=== PATIENT | male | born 1965 | race Caucasian/White ===

== ENCOUNTER 2019-03-02 11:04 | Emergency (ER) | payer BC, SELFPAY ==
[2019-03-02 11:42] LABS: Absolute Monocytes 1.3 K/uL (0.1-1.3); Absolute Neutrophil 8.7 K/uL (1.8-8.0); Basophils % 0.6 % (0-1.3); Eosinophils % 3.1 % (0-4.4); Hematocrit 47.4 % (39.6-49.0); Lymphocytes % 22.5 % (15.3-44.8); MPV 8.9 fL (7.6-11.3); Monocytes % 9.4 % (3.3-12.3); RBC Red Blood Cell Count 5.46 M/uL (4.33-5.43)
[2019-03-02] MEDS ORDERED: NA CHLORIDE 0.9% 1,000 ML ONE (11:53)
[2019-03-02 11:59] LABS: ALT/SGPT 23 U/L (12-78); AST/SGOT 14 U/L (15-37); Albumin 3.5 g/dL (3.4-5.0); Alkaline Phosphatase 111 U/L (45-117); BUN Blood Urea Nitrogen 18 mg/dL (7-18); Bicarbonate 25 mmol/L (21-32); Bilirubin Direct < 0.1 mg/dL (0-0.2); Bilirubin Total 0.4 mg/dL (0.2-1.0); Glucose Level 189 mg/dL (74-106); Lipase 148 U/L (73-393); Potassium 4.6 mmol/L (3.5-5.1); Protein, Total 8.8 g/dL (6.4-8.2); Sodium Level 133 mmol/L (136-145)
[2019-03-02] MEDS ORDERED: ONDANSETRON 4 MG/2 ML VIAL ONE (12:40)
--- NOTE | 2019-03-02 12:44 | RAD REPORT ---
EXAM DESCRIPTION: CT - Abdomen Pelvis Wo Contrast - 03/02/2019 12:21 pm CLINICAL HISTORY: Abdominal pain COMPARISON: None TECHNIQUE: Computed axial tomography of the abdomen and pelvis was obtained. IV and oral contrast we re not requested. All CT scans are performed using dose optimization technique as appropriate and may include automated exposure control or mA/KV adjustment according to patient size. FINDINGS: The evaluation of solid organs, vessels and bowel is limited secondary to the lack of con trast administration. A renal calculus is not seen. Mild to moderate left hydronephrosis. 7 millimeter calculus proximal le ft ureter Hounsfield unit 438 Fatty liver The liver, spleen, pancreas, and adrenals appear grossly normal. The appendix is normal. There is no evidence of diverticulitis. IMPRESSION: A 7 millimeter calculus proximal left ureter resulting in mild to moderate left hydronep hrosis
[2019-03-02] MEDS ORDERED: MORPHINE 4 MG/ML SYR ONE (13:11)
[2019-03-02 13:51] LABS: Urine Blood TRACE (NEG); Urine Glucose TRACE (NEG); Urine Protein NEGATIVE (NEG)
[2019-03-02 13:59] LABS: Urine Bacteria <20 /HPF (NONE SEEN); Urine Culture Reflex Order NOT NEEDED; Urine RBC <5 /HPF (NONE SEEN)
[2019-03-02] MEDS ORDERED: CEFTRIAXONE/SWI 1gm 1 GM/10 ML SYR ONE (14:07)
[2019-03-02] MEDS ORDERED: TAMSULOSIN 0.4 MG SR CAP ONE (14:07)
--- NOTE | 2019-03-02 14:09 | ER ---
Nurse's Notes [facility] Name: Danny Moreland Jr Age: 53 yrs Sex: Male : 1965 Arrival Date: 03/02/2019 Time: 11:07 Bed 14 Private MD: Diagnosis: Calculus of kidney and ureter Presentation: 03/02 11:14 Presenting complaint: Patient states: Cassia had some small bowel obstructions before, sg well my BMs have been pretty irregular and have had some issues with constipation in the past, reports last BM was about 2 weeks ago, has had abd distention with pain in the LUQ for several days, has been taking OTC mag citrate but only had a watery BM that was small afterwards also reports nausea, denies vomiting. Transition of care: patient was not received from another setting of care. Onset of symptoms was February 11, 2019. Risk Assessment: Do you want to hurt yourself or someone else? Patient reports no desire to harm self or others. Initial Sepsis Screen: Does the patient meet any 2 criteria? RR > 20 per min. HR > 90 bpm. Yes Does the patient have a suspected source of infection? Yes: Acute abdominal pain If YES to both, name of provider notified: Ricardo Walters MD. Care prior to arrival: None. 11:14 Method Of Arrival: Ambulatory sg 11:14 Acuity: HUGO 2 sg Triage Assessment: 11:17 General: Appears uncomfortable, ill, well nourished, Behavior is cooperative. Pain: sg Complains of pain in left upper quadrant and abdominal area Quality of pain is described as aching. GI: Abdomen is round distended, Last BM was February 08, 2019. Reports nausea. Historical: - Allergies: 11:16 No Known Allergies; sg - PMHx: 11:16 Hypertension; Diabetes - NIDDM; sg - Immunization history:: Adult Immunizations up to date. - Social history:: Smoking status: Patient uses tobacco products. - Ebola Screening: : Patient negative for fever greater than or equal to 101.5 degrees Fahrenheit, and additional compatible Ebola Virus Disease symptoms Patient denies exposure to infectious person Patient denies travel to an Ebola-affected area in the 21 days before illness onset No symptoms or risks identified at this time. Screenin:10 Abuse screen: Denies threats or abuse. Nutritional screening: decreased appetite due to rb1 discomfort after eating.. Tuberculosis screening: No symptoms or risk factors identified. Fall Risk None identified. Assessment: 11:10 General: Appears uncomfortable, Behavior is calm, cooperative, Denies fever. Pain: rb1 Complains of pain in left lower quadrant Pain currently is 7 out of 10 on a pain scale. Neuro: Level of Consciousness is awake, alert, obeys commands, Oriented to person, place, time, situation. Cardiovascular: Capillary refill < 3 seconds is brisk in bilateral fingers. Respiratory: Airway is patent Respiratory effort is even, unlabored, Respiratory pattern is regular, symmetrical. GI: Abdomen is distended, Bowel sounds present X 4 quads. Abdomen is tender to palpation in left lower quadrant Abd is rigid. : No signs and/or symptoms were reported regarding the genitourinary system. Derm: Skin is dry, Skin is normal, Skin temperature is warm. 12:10 Reassessment: Patient appears in no apparent distress at this time. No changes from rb1 previously documented assessment. 13:10 Reassessment: Patient appears in no apparent distress at this time. Patient and/or rb1 family updated on plan of care and expected duration. Pain level reassessed. Patient is alert, oriented x 3, equal unlabored respirations, skin warm/dry/pink. Pt. ambulated to the restroom without difficulty. 14:00 Reassessment: Patient appears in no apparent distress at this time. No changes from rb1 previously documented assessment. Pt. was reeducated on his diagnosis but insists on leaving AMA. Vital Signs: 11:13 BP 147 / 107; Pulse 122 MON; Resp 21 S; Temp 97.2; Pulse Ox 98% on R/A; Pain 10/10; sg 12:00 BP 155 / 100; Pulse 104; Resp 20; Temp 98.1(O); Pulse Ox 97% on R/A; Pain 10/10; rb1 13:00 BP 147 / 109; Pulse 106; Resp 19; Temp 98.7(O); Pulse Ox 99% ; Pain 10/10; rb1 14:00 BP 148 / 101; Pulse 102; Resp 20; Temp 98.9(O); Pulse Ox 100% on R/A; Pain 8/10; rb1 ED Course: 11:07 Patient arrived in ED. mr 11:10 Patient has correct armband on for positive identification. Placed in gown. Bed in low rb1 position. Call light in reach. Side rails up X 1. Pulse ox on. NIBP on. 11:13 Arm band placed on. sg 11:15 Mahi Langford, NOMI is Primary Nurse. rb1 11:16 Triage completed. sg 11:17 Kali Chiu PA is PHCP. jmm 11:17 Ricardo Walters MD is Attending Physician. jmm 11:30 Inserted saline lock: 22 gauge in right antecubital area, using aseptic technique. rb1 Blood collected. 11:39 Radiology exam delayed due to lab results not completed at this time. (BUN/Creatinine). vm2 12:21 Abdomen In Process Unspecified. EDMS 12:21 CT completed. Patient tolerated procedure well. Patient moved back from CT. mw3 13:58 Abdomen 1 View (KUB) XRAY In Process Unspecified. EDMS 14:07 Aurea Murray MD is Referral Physician. jmm 14:20 No provider procedures requiring assistance completed. IV discontinued, intact, rb1 bleeding controlled, No redness/swelling at site. Pressure dressing applied. Administered Medications: 11:43 Drug: NS 0.9% 1000 ml Route: IV; Rate: 1 bolus; Site: right antecubital; rb1 12:29 Drug: Zofran 4 mg Route: IVP; Site: right antecubital; la1 12:44 Follow up: Response: No adverse reaction; Nausea is decreased rb1 13:05 Drug: morphine 4 mg Route: IVP; Site: right antecubital; rb1 13:20 Follow up: Response: No adverse reaction; Pain is decreased rb1 14:00 Drug: Rocephin - (cefTRIAXone) 1 grams Route: IVPB; Infused Over: 30 mins; Site: right rb1 antecubital; 14:20 Follow up: Response: No adverse reaction; IV Status: Completed infusion rb1 14:00 Drug: Flomax 0.4 mg Route: PO; rb1 14:18 Follow up: Response: No adverse reaction rb1 Outcome: 14:20 Patient left the ED. rb1 14:20 AMA AMA form signed rb1 14:20 Condition: stable 14:20 Instructed on medication usage, Demonstrated understanding of instructions, follow-up care, medications, Prescriptions given X 4. Signatures: Dispatcher [employer] EDMS Pb Teixeira, RN RN sg Kali Chiu PA PA jmm Rivera, Ana Maria mr Joycelyna, Jaret, RN RN la1 Mahi Langford RN RN rb1 [facility] Rose Marie Machado 3
--- NOTE | 2019-03-02 14:09 | EDPHYS ---
Physician Documentation [facility] Name: Danny Moreland Jr Age: 53 yrs Sex: Male : 1965 Arrival Date: 03/02/2019 Time: 11:07 Bed 14 Private MD: ED Physician Ricardo Walters HPI: 03/02 11:34 This 53 yrs old Male presents to ER via Ambulatory with complaints of jmm Constipation. 11:34 The patient presents with abdominal pain. jmm 11:34 Onset: The symptoms/episode began/occurred gradually, 1 week(s) ago. jmm 11:34 The symptoms do not radiate. Associated signs and symptoms: Pertinent positives:. jmm 11:34 The symptoms are described as achy. jmm 11:34 Modifying factors: The symptoms are alleviated by nothing, the symptoms are aggravated jmm by. This is a 53 year old male with a history of htn, DM that presents to the ED with complaints of left sided abdominal pain beginning 1 week ago. Patient states taking magnesium citrate with a watery bowel movement with no relief. Denies fever, denies vomiting. . Historical: - Allergies: 11:16 No Known Allergies; sg - PMHx: 11:16 Hypertension; Diabetes - NIDDM; sg - Immunization history:: Adult Immunizations up to date. - Social history:: Smoking status: Patient uses tobacco products. - Ebola Screening: : Patient negative for fever greater than or equal to 101.5 degrees Fahrenheit, and additional compatible Ebola Virus Disease symptoms Patient denies exposure to infectious person Patient denies travel to an Ebola-affected area in the 21 days before illness onset No symptoms or risks identified at this time. ROS: 11:34 Constitutional: Negative for fever, chills, and weight loss, Cardiovascular: Negative jmm for chest pain, palpitations, and edema, Respiratory: Negative for shortness of breath, cough, wheezing, and pleuritic chest pain. 11:34 Back: Negative for injury and pain, Skin: Negative for injury, rash, and discoloration, Neuro: Negative for headache, weakness, numbness, tingling, and seizure. 11:34 Abdomen/GI: Positive for abdominal pain. 11:34 All other systems are negative. Exam: 11:34 Head/Face: atraumatic. Eyes: EOMI, no conjunctival erythema appreciated ENT: Moist jmm Mucus Membranes Neck: Trachea midline, Supple Chest/axilla: Normal chest wall appearance and motion. Cardiovascular: Regular rate and rhythm. No edema appreciated Respiratory: Normal respirations, no respiratory distress appreciated 11:34 Constitutional: The patient appears alert, awake, uncomfortable. 11:34 Abdomen/GI: Inspection: obese Bowel sounds: normal, Palpation: soft, moderate abdominal tenderness, in the left upper quadrant and left lower quadrant. 11:34 Back: CVA tenderness, that is mild, is noted on the left. 11:34 Musculoskeletal/extremity: ROM: intact in all extremities. 11:34 Skin: Appearance: Color: normal in color. 11:34 Neuro: Orientation: is normal, Mentation: is normal, Memory: is normal. 11:34 Psych: Behavior/mood is pleasant, cooperative. Vital Signs: 11:13 BP 147 / 107; Pulse 122 MON; Resp 21 S; Temp 97.2; Pulse Ox 98% on R/A; Pain 10/10; sg 12:00 BP 155 / 100; Pulse 104; Resp 20; Temp 98.1(O); Pulse Ox 97% on R/A; Pain 10/10; rb1 13:00 BP 147 / 109; Pulse 106; Resp 19; Temp 98.7(O); Pulse Ox 99% ; Pain 10/10; rb1 14:00 BP 148 / 101; Pulse 102; Resp 20; Temp 98.9(O); Pulse Ox 100% on R/A; Pain 8/10; rb1 MDM: 11:20 Patient medically screened. [facility] 14:00 Data reviewed: vital signs, nurses notes. Counseling: I had a detailed discussion with cassandra the patient and/or guardian regarding: the historical points, exam findings, and any diagnostic results supporting the discharge/admit diagnosis, lab results, radiology results, the need for further work-up and treatment in the hospital. 14:00 ED course: I discussed with the patient the need for admission due to concerns for cassandra kidney injury and infection. Patient was made aware that if symptoms worsen this could lead to ESRD or even . Patient understood this and will return to the ED if symptoms worsen. . 03/02 11:21 Order name: Basic Metabolic Panel [facility] 03/02 11:21 Order name: CBC with Diff; Complete Time: 12:08 [facility] 03/02 11:21 Order name: Creatinine for Radiology; Complete Time: 12:08 [facility] 03/02 11:21 Order name: Hepatic Function; Complete Time: 12:08 [facility] 03/02 11:21 Order name: Lipase; Complete Time: 12:08 [facility] 03/02 11:21 Order name: Basic Metabolic Panel; Complete Time: 12:08 [facility] 03/02 12:17 Order name: Abdomen ; Complete Time: 12:50 [facility] 03/02 12:52 Order name: Urine Microscopic Only; Complete Time: 14:16 [facility] 03/02 13:25 Order name: Urine Dipstick--Ancillary (enter results); Complete Time: 14:16 ms 03/02 13:34 Order name: Abdomen 1 View (KUB) XRAY; Complete Time: 14:16 [facility] 03/02 11:21 Order name: IV Saline Lock; Complete Time: 13:24 [facility] 03/02 11:21 Order name: Labs collected and sent; Complete Time: 13:24 [facility] 03/02 12:52 Order name: Urine Dipstick-Ancillary (obtain specimen); Complete Time: 13:24 jm Administered Medications: 11:43 Drug: NS 0.9% 1000 ml Route: IV; Rate: 1 bolus; Site: right antecubital; rb1 12:29 Drug: Zofran 4 mg Route: IVP; Site: right antecubital; la1 12:44 Follow up: Response: No adverse reaction; Nausea is decreased rb1 13:05 Drug: morphine 4 mg Route: IVP; Site: right antecubital; rb1 13:20 Follow up: Response: No adverse reaction; Pain is decreased rb1 14:00 Drug: Rocephin - (cefTRIAXone) 1 grams Route: IVPB; Infused Over: 30 mins; Site: right rb1 antecubital; 14:20 Follow up: Response: No adverse reaction; IV Status: Completed infusion rb1 14:00 Drug: Flomax 0.4 mg Route: PO; rb1 14:18 Follow up: Response: No adverse reaction rb1 Disposition: 22:10 Co-signature as Attending Physician, Ricardo Walters MD Available for consultation at ps1 all times . Disposition: 03/02/19 14:08 Patient has left against medical advice. Impression: Calculus of kidney and ureter. - Patients states they are going to Home. - Condition is Stable. - Prescriptions for Ultracet 37.5- 325 mg Oral Tablet - take 1 tablet by ORAL route every 6 hours - for up to 5 days; do not exceed 8 tablets per day.; 12 tablet. Flomax 0.4 mg Oral Capsule, Sust. Release 24 hr - take 1 capsule by ORAL route once daily 1/2 hour following the same meal each day; 10 capsule. Cipro 500 mg Oral Tablet - take 1 tablet by ORAL route every 12 hours for 7 days; 14 tablet. Zofran 4 mg Oral Tablet - take 1 tablet by ORAL route every 12 hours As needed; 20 tablet. Follow up: Aurea Murray MD; When: 1 - 2 days; Reason: Recheck today's complaints, Continuance of care, Re-evaluation by your physician. - Problem is new. - Symptoms are unchanged. Signatures: Dispatcher [employer] EDFL Pb Teixeira, RN RN sg Kali Chiu PA PA [facility] Jaret Rahman RN RN la1 Mahi Langford RN RN rb1 Ricardo Walters MD MD ps1 Corrections: (The following items were deleted from the chart) 12:17 11:22 Abdomen Pelvis W Con+CT.RAD.BRZ ordered. [facility] 12:31 12:07 Fluid Challenge ordered. [facility] [place] 14:20 14:08 03/02/2019 14:08 Patients has left against medical advice. Impression: Calculus rb1 of kidney and ureter. Patient states they are going to Home. Condition is Stable. Follow up: Aurea Murray; When: 1 - 2 days; Reason: Recheck today's complaints, Continuance of care, Re-evaluation by your physician. Problem is new. Symptoms are unchanged. [facility]
--- NOTE | 2019-03-02 14:15 | RAD REPORT ---
EXAM DESCRIPTION: RAD - Abdomen 1 View (KUB) - 03/02/2019 1:58 pm CLINICAL HISTORY: Abdomen pain. FINDINGS: The bowel gas pattern is unremarkable. The patient's known left ureteral calculus is not clearly seen on this examination
[2019-03-02 14:28] VITALS: BP 147/109; TEMP 98.7; O2SAT 99
== END 2019-03-02 14:20 | disposition left against medical advice (07) ==
LOC: ER 11:04
DX: N20.2 Calculus of kidney with calculus of ureter (principal); I10 Essential (primary) hypertension; E11.9 Type 2 diabetes mellitus without complications; Z72.0 Tobacco use; Z53.29 Procedure and treatment not carried out because of patient's decision for other reasons
CPT/HCPCS: 36415; 74018; 74176; 80048; 80076; 81003; 81015; 83690; 85025; 96365; 96375; 99284; J0696; J2405; J7030

== ENCOUNTER 2019-03-04 07:45 | Inpatient (IN) | payer SELFPAY ==
[2019-03-04 08:24] LABS: Protime INR 1.1
[2019-03-04 08:26] LABS: Absolute Lymphocytes (CBC) 2.9 K/uL (0.7-4.9); Absolute Monocytes 1.3 K/uL (0.1-1.3); Absolute Neutrophil 9.4 K/uL (1.8-8.0); Basophils % 0.7 % (0-1.3); Eosinophils % 3.5 % (0-4.4); Hematocrit 44.7 % (39.6-49.0); Lymphocytes % 20.7 % (15.3-44.8); MPV 8.4 fL (7.6-11.3); Monocytes % 9.1 % (3.3-12.3); RBC Red Blood Cell Count 5.15 M/uL (4.33-5.43)
[2019-03-04] MEDS ORDERED: NA CHLORIDE 0.9% 1,000 ML ONE (08:28)
[2019-03-04] MEDS ORDERED: BISACODYL 10 MG RECTAL SUPP ONE (08:28)
[2019-03-04] MEDS ORDERED: LACTULOSE 20 GM/30 ML UCUP ONE (08:29)
[2019-03-04 08:39] LABS: ALT/SGPT 24 U/L (12-78); AST/SGOT 9 U/L (15-37); Albumin 3.2 g/dL (3.4-5.0); Alkaline Phosphatase 105 U/L (45-117); BUN Blood Urea Nitrogen 18 mg/dL (7-18); Bicarbonate 26 mmol/L (21-32); Bilirubin Direct 0.1 mg/dL (0-0.2); Bilirubin Total 0.2 mg/dL (0.2-1.0); Glucose Level 193 mg/dL (74-106); Lipase 462 U/L (73-393); Magnesium 2.3 mg/dL (1.8-2.4); NT PRO-BNP 822 pg/mL (<125); Potassium 4.4 mmol/L (3.5-5.1); Protein, Total 8.4 g/dL (6.4-8.2); Sodium Level 132 mmol/L (136-145); Troponin (Emerg Dept Use Only) < 0.02 ng/mL (0.0-0.045)
--- NOTE | 2019-03-04 09:03 | RAD REPORT ---
EXAM DESCRIPTION: RAD - Chest Single View - 03/04/2019 8:52 am CLINICAL HISTORY: ABDOMINAL DISTENTION Chest pain. COMPARISON: Abdomen 1 View (KUB) dated 03/02/2019; CHEST SINGLE VIEW dated 03/30/2015; CHEST SINGLE VIEW dated 02/24/2014 FINDINGS: Portable technique limits examination quality. The lungs are grossly clear. The heart is normal in size. No displaced fractures. IMPRESSION: No acute intrathoracic process suspected.
[2019-03-04] MEDS ORDERED: METRONIDAZOLE 500mg IVPB 500 MG/100 ML BAG IV ONE (09:16)
[2019-03-04] MEDS ORDERED: CEFTRIAXONE/SWI 1gm 1 GM/10 ML SYR ONE (09:16)
--- NOTE | 2019-03-04 10:13 | RAD REPORT ---
EXAM DESCRIPTION: CTAbdomen Pelvis W Contrast - 03/04/2019 9:57 am CLINICAL HISTORY: Abdominal pain. Abdominal distention;Constipation COMPARISON: Abdomen Pelvis Wo Contrast dated 03/02/2019 TECHNIQUE: Biphasic CT imaging of the abdomen and pelvis was performed with 100 ml non-ionic IV cont rast. All CT scans are performed using dose optimization technique as appropriate and may include automated exposure control or mA/KV adjustment according to patient size. FINDINGS: The lung bases are clear. Generalized fatty liver. The spleen, pancreas, adrenal glands and right kidney are normal. 7 mm stone is noted at the left UVJ resulting in moderate left hydroureter and hydronephrosis. This appears to be the same stone which was previously noted to be in the proximal left ureter. No bowel obstruction, free air, free fluid or abscess. The appendix is normal in size but contains a n appendicolith. No evidence of significant lymphadenopathy. No suspicious bony findings. IMPRESSION: 7 mm stone left UVJ resulting in moderate left hydronephrosis and hydroureter. Fatty liver.
--- NOTE | 2019-03-04 10:40 | EDPHYS ---
Physician Documentation [facility] Name: Danny Moreland Jr Age: 53 yrs Sex: Male : 1965 Arrival Date: 03/04/2019 Time: 07:47 Bed 19 Private MD: None, None ED Physician Tim Mcnamara HPI: 03/04 08:28 This 53 yrs old Male presents to ER via Ambulatory with complaints of madison Constipation, Abdominal Pain. 08:28 The patient presents with abdominal pain in the upper abdomen, in the lower abdomen, madison abdominal distention in the upper abdomen, in the lower abdomen. Onset: The symptoms/episode began/occurred 5 day(s) ago. The symptoms do not radiate. Associated signs and symptoms: none. Modifying factors: The symptoms are alleviated by nothing, the symptoms are aggravated by nothing. Severity of pain: At its worst the pain was mild moderate in the emergency department the pain is unchanged. The patient has not experienced similar symptoms in the past. Historical: - Allergies: 07:57 No Known Drug Allergies; - Home Meds: 07:57 Metformin Oral [Active]; Gemfibrozil Oral [Active]; losartan oral oral [Active]; hj - PMHx: 07:57 Diabetes - NIDDM; Hypertension; - PSHx: 07:57 None; - Immunization history:: Adult Immunizations up to date. - Social history:: Smoking status: Patient uses tobacco products, Patient uses alcohol. - Ebola Screening: : Patient negative for fever greater than or equal to 101.5 degrees Fahrenheit, and additional compatible Ebola Virus Disease symptoms Patient denies exposure to infectious person Patient denies travel to an Ebola-affected area in the 21 days before illness onset. - Family history:: not pertinent. ROS: 08:28 Constitutional: Negative for fever, chills, and weight loss, Eyes: Negative for injury, madison pain, redness, and discharge, ENT: Negative for injury, pain, and discharge, Neck: Negative for injury, pain, and swelling, Cardiovascular: Negative for chest pain, palpitations, and edema, Respiratory: Negative for shortness of breath, cough, wheezing, and pleuritic chest pain, Back: Negative for injury and pain, : Negative for injury, bleeding, discharge, and swelling, MS/Extremity: Negative for injury and deformity, Skin: Negative for injury, rash, and discoloration, Neuro: Negative for headache, weakness, numbness, tingling, and seizure, Psych: Negative for depression, anxiety, suicide ideation, homicidal ideation, and hallucinations, Allergy/Immunology: Negative for hives, rash, and allergies, Endocrine: Negative for neck swelling, polydipsia, polyuria, polyphagia, and marked weight changes, Hematologic/Lymphatic: Negative for swollen nodes, abnormal bleeding, and unusual bruising. 08:28 Abdomen/GI: Positive for abdominal pain, constipation, of the right upper quadrant, left upper quadrant, right lower quadrant and left lower quadrant. Exam: 08:28 Constitutional: This is a well developed, well nourished patient who is awake, alert, madison and in no acute distress. Head/Face: Normocephalic, atraumatic. Eyes: Pupils equal round and reactive to light, extra-ocular motions intact. Lids and lashes normal. Conjunctiva and sclera are non-icteric and not injected. Cornea within normal limits. Periorbital areas with no swelling, redness, or edema. ENT: Nares patent. No nasal discharge, no septal abnormalities noted. Tympanic membranes are normal and external auditory canals are clear. Oropharynx with no redness, swelling, or masses, exudates, or evidence of obstruction, uvula midline. Mucous membranes moist. Neck: Trachea midline, no thyromegaly or masses palpated, and no cervical lymphadenopathy. Supple, full range of motion without nuchal rigidity, or vertebral point tenderness. No Meningismus. Chest/axilla: Normal chest wall appearance and motion. Nontender with no deformity. No lesions are appreciated. Cardiovascular: Regular rate and rhythm with a normal S1 and S2. No gallops, murmurs, or rubs. Normal PMI, no JVD. No pulse deficits. Respiratory: Lungs have equal breath sounds bilaterally, clear to auscultation and percussion. No rales, rhonchi or wheezes noted. No increased work of breathing, no retractions or nasal flaring. Back: No spinal tenderness. No costovertebral tenderness. Full range of motion. Male : Normal genitalia with no discharge or lesions. Skin: Warm, dry with normal turgor. Normal color with no rashes, no lesions, and no evidence of cellulitis. MS/ Extremity: Pulses equal, no cyanosis. Neurovascular intact. Full, normal range of motion. Neuro: Awake and alert, GCS 15, oriented to person, place, time, and situation. Cranial nerves II-XII grossly intact. Motor strength 5/5 in all extremities. Sensory grossly intact. Cerebellar exam normal. Normal gait. Psych: Awake, alert, with orientation to person, place and time. Behavior, mood, and affect are within normal limits. 08:28 Abdomen/GI: Inspection: abdomen appears normal, distension, that is moderate, Bowel sounds: normal, Palpation: moderate abdominal tenderness, Liver: no appreciated palpable abnormalities, Hernia: not appreciated. Vital Signs: 07:59 BP 162 / 106; Pulse 119; Resp 18; Temp 98.3(TE); Pulse Ox 96% on R/A; Weight 81.65 kg; Height 5 ft. 6 in. (167.64 cm); Pain 10/10; 08:51 BP 147 / 85; Pulse 112; Resp 18; Pulse Ox 96% on R/A; 09:30 BP 155 / 87; Pulse 112; Resp 18; Pulse Ox 96% on R/A; hj 10:30 BP 156 / 87; Pulse 112; Resp 18; Pulse Ox 96% on R/A; 11:30 BP 156 / 88; Pulse 109; Resp 18; Pulse Ox 97% on R/A; 12:12 BP 156 / 85; Pulse 109; Resp 18; Pulse Ox 97% ; 13:45 BP 158 / 90; Pulse 109; Resp 18; Pulse Ox 97% on R/A; 07:59 Body Mass Index 29.05 (81.65 kg, 167.64 cm) MDM: 07:49 Patient medically screened. [facility] 08:28 Data reviewed: vital signs, nurses notes, lab test result(s), EKG, radiologic studies, [facility] CT scan, plain films. 03/04 08:08 Order name: Basic Metabolic Panel; Complete Time: 08:55 [facility] 03/04 08:08 Order name: CBC with Diff; Complete Time: 08:55 [facility] 03/04 08:08 Order name: LFT's; Complete Time: 08:55 [facility] 03/04 08:08 Order name: Magnesium; Complete Time: 08:55 [facility] 03/04 08:08 Order name: NT PRO-BNP; Complete Time: 08:55 [facility] 03/04 08:08 Order name: PT-INR; Complete Time: 08:55 [facility] 03/04 08:08 Order name: Troponin (emerg Dept Use Only); Complete Time: 08:55 [facility] 03/04 08:08 Order name: XRAY Chest (1 view); Complete Time: 10:37 [facility] 03/04 08:08 Order name: CT Abd/Pelvis - W/Contrast; Complete Time: 10:37 [facility] 03/04 08:08 Order name: Lipase; Complete Time: 08:55 [facility] 03/04 08:56 Order name: Urine Culture [facility] 03/04 09:01 Order name: Urine Dipstick--Ancillary (enter results) 03/04 08:08 Order name: EKG; Complete Time: 08:09 [facility] 03/04 08:08 Order name: Cardiac monitoring; Complete Time: 08:10 [facility] 03/04 08:08 Order name: EKG - Nurse/Tech; Complete Time: 08:10 [facility] 03/04 08:08 Order name: IV Saline Lock; Complete Time: 08:10 [facility] 03/04 08:08 Order name: Labs collected and sent; Complete Time: 08:10 [facility] 03/04 08:08 Order name: O2 Per Protocol; Complete Time: 08:10 [facility] 03/04 08:08 Order name: O2 Sat Monitoring; Complete Time: 08:10 [facility] 03/04 08:08 Order name: Urine Dipstick-Ancillary (obtain specimen); Complete Time: 09:08 [facility] 03/04 10:38 Order name: NPO; Complete Time: 10:39 [facility] Administered Medications: 08:19 Drug: NS 0.9% 1000 ml Route: IV; Rate: 1 bolus; Site: right antecubital; hj 09:30 Follow up: IV Status: Completed infusion; IV Intake: 1000ml hj 08:20 Drug: Lactulose 30 grams Volume: 45 ml; Route: PO; hj 09:09 Follow up: Response: No adverse reaction hj 08:20 Drug: Dulcolax Suppository 10 mg Route: MO; hj 09:09 Follow up: Response: No adverse reaction hj 09:00 Drug: Rocephin - (cefTRIAXone) 1 grams Route: IVPB; Infused Over: 30 mins; Site: right hj antecubital; 09:00 Drug: Flagyl 500 mg Volume: 100 ml; Route: IVPB; Rate: 200 ml/hr; Infused Over: 30 hj mins; Site: right antecubital; 10:40 Drug: fentaNYL (PF) 50 mcg Route: IVP; Site: right antecubital; hj 11:00 Follow up: Response: No adverse reaction; Pain is decreased hj 10:40 Drug: Zofran 4 mg Route: IVP; Site: right antecubital; hj 14:08 Follow up: Response: No adverse reaction; Nausea is decreased Disposition: 03/04/19 10:40 Hospitalization ordered by Peggy Hilliard for Inpatient Admission. Preliminary diagnosis are Abdominal tenderness, Hydronephrosis with renal and ureteral calculous obstruction - 7 mm left uvj, Unspecified kidney failure. - Bed requested for Telemetry/MedSurg (Inpatient). - Status is Inpatient Admission. hj - Condition is Fair. - Problem is new. - Symptoms have improved. UTI on Admission? No Signatures: Dispatcher [employer] EDKarina Mccain RN RN kl Anderson, Corey, MD MD cha Joaquin, Henry, RN RN Corrections: (The following items were deleted from the chart) 13:00 10:40 Hospitalization Ordered by Peggy Hilliard MD for Inpatient Admission. Preliminary diagnosis is Abdominal tenderness; Hydronephrosis with renal and ureteral calculous obstruction - 7 mm left uvj; Unspecified kidney failure. Bed requested for Telemetry/MedSurg (Inpatient). Status is Inpatient Admission. Condition is Fair. Problem is new. Symptoms have improved. UTI on Admission? No. [place] 14:07 13:00 03/04/2019 10:40 Hospitalization Ordered by Peggy Hilliard MD for Inpatient hj Admission. Preliminary diagnosis is Abdominal tenderness; Hydronephrosis with renal and ureteral calculous obstruction - 7 mm left uvj; Unspecified kidney failure. Bed requested for Telemetry/MedSurg (Inpatient). Status is Inpatient Admission. Condition is Fair. Problem is new. Symptoms have improved. UTI on Admission? No. kl
--- NOTE | 2019-03-04 10:40 | ER ---
Nurse's Notes [facility] Name: Danny Moreland Jr Age: 53 yrs Sex: Male : 1965 Arrival Date: 03/04/2019 Time: 07:47 Bed 19 Private MD: None, None Diagnosis: Abdominal tenderness;Hydronephrosis with renal and ureteral calculous obstruction-7 mm left uvj;Unspecified kidney failure Presentation: 03/04 07:54 Presenting complaint: Patient states: i was here recently for kidney stone and hj infection; i went home AMA coz i dont want to stay in the hospital; denies fever and chills, reports pain is getting worse;. Transition of care: patient was not received from another setting of care. Onset of symptoms was March 04, 2019. Risk Assessment: Do you want to hurt yourself or someone else? Patient reports no desire to harm self or others. Initial Sepsis Screen: Does the patient meet any 2 criteria? Yes Does the patient have a suspected source of infection? Yes:. Care prior to arrival: None. 07:54 Method Of Arrival: Ambulatory 07:54 Acuity: HUGO 3 hj Triage Assessment: 07:58 General: Appears in no apparent distress. uncomfortable, Behavior is calm, cooperative, hj appropriate for age. Pain: Complains of pain in back and abdomen. GI: Reports lower abdominal pain, upper abdominal pain. Historical: - Allergies: 07:57 No Known Drug Allergies; hj - Home Meds: 07:57 Metformin Oral [Active]; Gemfibrozil Oral [Active]; losartan oral oral [Active]; - PMHx: 07:57 Diabetes - NIDDM; Hypertension; - PSHx: 07:57 None; hj - Immunization history:: Adult Immunizations up to date. - Social history:: Smoking status: Patient uses tobacco products, Patient uses alcohol. - Ebola Screening: : Patient negative for fever greater than or equal to 101.5 degrees Fahrenheit, and additional compatible Ebola Virus Disease symptoms Patient denies exposure to infectious person Patient denies travel to an Ebola-affected area in the 21 days before illness onset. - Family history:: not pertinent. Screenin:58 Abuse screen: Denies threats or abuse. Denies injuries from another. Nutritional hj screening: No deficits noted. Tuberculosis screening: No symptoms or risk factors identified. Fall Risk None identified. Assessment: 07:58 GI: Bowel sounds present X 4 quads. Abd is soft. hj 07:58 General: Appears in no apparent distress. uncomfortable, Behavior is calm, cooperative, hj appropriate for age. Pain: Complains of pain in abdomen. Neuro: Level of Consciousness is awake, alert, obeys commands, Oriented to person, place, time, situation, Appropriate for age. Cardiovascular: Capillary refill < 3 seconds Patient's skin is warm and dry. Respiratory: Airway is patent Respiratory effort is even, unlabored, Respiratory pattern is regular, symmetrical. : No signs and/or symptoms were reported regarding the genitourinary system. EENT: No signs and/or symptoms were reported regarding the EENT system. Derm: No signs and/or symptoms reported regarding the dermatologic system. Musculoskeletal: No signs and/or symptoms reported regarding the musculoskeletal system. 08:30 Reassessment: Patient and/or family updated on plan of care and expected duration. Pain hj level reassessed. Patient is alert, oriented x 3, equal unlabored respirations, skin warm/dry/pink. awaiting results and POC;. 09:48 Reassessment: Patient and/or family updated on plan of care and expected duration. Pain hj level reassessed. Patient is alert, oriented x 3, equal unlabored respirations, skin warm/dry/pink. wheeled to CT;. 10:30 Reassessment: Patient and/or family updated on plan of care and expected duration. Pain hj level reassessed. Patient is alert, oriented x 3, equal unlabored respirations, skin warm/dry/pink. for admit; awaiting results;. 11:30 Reassessment: Patient and/or family updated on plan of care and expected duration. Pain hj level reassessed. Patient is alert, oriented x 3, equal unlabored respirations, skin warm/dry/pink. awaiting room placement;. 12:14 Reassessment: Patient and/or family updated on plan of care and expected duration. Pain hj level reassessed. Patient is alert, oriented x 3, equal unlabored respirations, skin warm/dry/pink. assisted to the bathroom;. 13:30 Reassessment: Patient and/or family updated on plan of care and expected duration. Pain hj level reassessed. Patient is alert, oriented x 3, equal unlabored respirations, skin warm/dry/pink. awaiting room placement;. 14:05 Reassessment: Patient and/or family updated on plan of care and expected duration. Pain hj level reassessed. Patient is alert, oriented x 3, equal unlabored respirations, skin warm/dry/pink. Vital Signs: 07:59 BP 162 / 106; Pulse 119; Resp 18; Temp 98.3(TE); Pulse Ox 96% on R/A; Weight 81.65 kg; hj Height 5 ft. 6 in. (167.64 cm); Pain 10/10; 08:51 BP 147 / 85; Pulse 112; Resp 18; Pulse Ox 96% on R/A; hj 09:30 BP 155 / 87; Pulse 112; Resp 18; Pulse Ox 96% on R/A; hj 10:30 BP 156 / 87; Pulse 112; Resp 18; Pulse Ox 96% on R/A; hj 11:30 BP 156 / 88; Pulse 109; Resp 18; Pulse Ox 97% on R/A; hj 12:12 BP 156 / 85; Pulse 109; Resp 18; Pulse Ox 97% ; hj 13:45 BP 158 / 90; Pulse 109; Resp 18; Pulse Ox 97% on R/A; hj 07:59 Body Mass Index 29.05 (81.65 kg, 167.64 cm) ED Course: 07:47 Patient arrived in ED. mr 07:47 None, None is Private Physician. mr 07:49 Tim Mcnamara MD is Attending Physician. [facility] 07:53 Ad Peck, RN is Primary Nurse. hj 07:56 Triage completed. hj 07:58 Arm band placed on right wrist. hj 07:59 Patient has correct armband on for positive identification. Placed in gown. Bed in low hj position. Call light in reach. Side rails up X 1. Adult w/ patient. 08:10 Initial lab(s) drawn, by me, sent to lab. Inserted saline lock: 22 gauge in right hj antecubital area, using aseptic technique. Blood collected. 08:19 EKG done, by proof technician helper. reviewed by Tim Mcnamara MD. at1 08:32 Oral contrast reported to be complete. sj 08:51 X-ray completed. Portable x-ray completed in exam room. Patient tolerated procedure sw well. 08:52 XRAY Chest (1 view) In Process Unspecified. EDMS 09:57 CT Abd/Pelvis - W/Contrast In Process Unspecified. EDMS 10:39 Peggy Hilliard MD is Hospitalizing Provider. [facility] 14:06 No provider procedures requiring assistance completed. Patient admitted, IV remains in hj place. intact. Administered Medications: 08:19 Drug: NS 0.9% 1000 ml Route: IV; Rate: 1 bolus; Site: right antecubital; hj 09:30 Follow up: IV Status: Completed infusion; IV Intake: 1000ml 08:20 Drug: Lactulose 30 grams Volume: 45 ml; Route: PO; hj 09:09 Follow up: Response: No adverse reaction hj 08:20 Drug: Dulcolax Suppository 10 mg Route: SD; hj 09:09 Follow up: Response: No adverse reaction hj 09:00 Drug: Rocephin - (cefTRIAXone) 1 grams Route: IVPB; Infused Over: 30 mins; Site: right hj antecubital; 09:00 Drug: Flagyl 500 mg Volume: 100 ml; Route: IVPB; Rate: 200 ml/hr; Infused Over: 30 hj mins; Site: right antecubital; 10:40 Drug: fentaNYL (PF) 50 mcg Route: IVP; Site: right antecubital; hj 11:00 Follow up: Response: No adverse reaction; Pain is decreased hj 10:40 Drug: Zofran 4 mg Route: IVP; Site: right antecubital; hj 14:08 Follow up: Response: No adverse reaction; Nausea is decreased hj Intake: 09:30 IV: 1000ml; Total: 1000ml. Outcome: 10:40 Decision to Hospitalize by Provider. [facility] 14:06 Admitted to Tele accompanied by jama family with patient, via wheelchair, room 430, with chart, Report called to NOMI Newman 14:06 Condition: stable 14:06 Instructed on the need for admit, Demonstrated understanding of instructions. 14:07 Patient left the ED. Signatures: Dispatcher [employer] Tim Catalan MD MD cha Rivera, Ana Maria liriano Eddie, Vivian Cunningham, retail office associate EKG Tat1 Krysta Andrade Henry, RN RN
[2019-03-04] MEDS ORDERED: ONDANSETRON 4 MG/2 ML VIAL ONE (10:57)
[2019-03-04] MEDS ORDERED: FENTANYL CITR 100 MCG/2 ML ONE (10:57)
[2019-03-04] MEDS ORDERED: HYDRALAZINE HCL 20 MG/ML VIAL IV PRN (11:54)
[2019-03-04 14:08] LABS: Urine Blood 3+ (NEG); Urine Glucose TRACE (NEG); Urine Protein 2+ (NEG); Urine pH 5.5 (5.0-7.0)
[2019-03-04] MEDS ORDERED: ALBUTEROL 2.5 MG/3 ML NEB SOL NEB PRN (14:12)
[2019-03-04] MEDS ORDERED: ACETAMINOPHEN 500 MG TAB PO PRN (14:12)
[2019-03-04] MEDS ORDERED: ONDANSETRON 4 MG/2 ML VIAL IV PRN (14:12)
[2019-03-04 14:20] VITALS: BMI 29.0
[2019-03-04] MEDS: NA CHLORIDE 0.9% 1,000 ML IV SCH ×2 (14:39→23:49)
[2019-03-04] MEDS: NICOTINE 21 MG/PAT TD SCH (14:39)
[2019-03-04] MEDS: MORPHINE 2 MG/ML SYR IV PRN ×3 (14:40→23:49)
--- NOTE | 2019-03-04 15:24 | EKG ---
Test Date: 2019-03-04 Test Time: 08:19:40 Human Performance Professor: JOSE MEASUREMENT RESULTS: Intervals: Rate: 114 AR: 172 QRSD: 104 QT: 346 QTc: 476 [place]: P: 48 AR: 172 QRS: 13 T: 34 INTERPRETIVE STATEMENTS: Sinus tachycardia Otherwise normal ECG Compared to ECG 10/20/2015 11:47:33 No significant changes Electronically Signed On 03-04-19 15:23:14 CDT by Elpidio Reeder
--- NOTE | 2019-03-04 16:14 | CON ---
History Of Present Illness: This is a pleasant 53-year-old gentleman, who was in the ER over Monday, for 7 mm left lower ureter stone. He was advised to stay for IV antibiotics and pain control since he is diabetic, however, he wanted to go home. He was supposed to come see me in the office today, never came, he came back to the emergency room for persistent pain. CT showed that the stone is at the UVJ. A 7 mm stone at the left UVJ causing moderate left hydronephrosis and hydroureter. We gave him all the options of watchful waiting versus ureteroscopy, stone basket, stent placement versus ESWL. He wishes to go to ESWL tomorrow when the machine is here. He was given all general information, alternatives, and risks and wishes to proceed. He was not coerced. He is happier with that choice of ESWL versus ureteroscopy and extraction. Allergies: NO KNOWN DRUG ALLERGIES. Medications: Metformin. Past Medical History: Diabetes non-insulin dependent, hypertension. Past Surgical History: None. Immunizations: Up to date. Social History: No smoking. Uses alcohol. Review of Systems: Ten-point review of systems otherwise normal. Physical Examination: Vital Signs: Temperature 97, pulse 107, respirations 16, BP 147/91, 96% saturation. HEENT: Normocephalic. Heart: S1, S2. Abdomen: Soft, nontender. Minimal left flank tenderness. Extremities: Normal range of motion. Laboratories: Reviewed. White count slightly elevated at 14.2, H and H 15 and 44, platelet count 276. Coags: PT is 12.9, INR 1.1. Chemistry: Sodium 132, potasium 4.2, chloride 99, carbon dioxide 26, BUN 18, creatinine 1.38, GFR estimated to be 54, glucose 193, lipase was_. Assessment: A 7 mm stone left ureteropelvic junction. Plan: The patient plans to have ESWL, possible stent placement. I discussed that with him. He wishes to proceed. He is not excited about the stent and would like to try to break up the stone, but he may still need the stent placed. AZRA/QUIRINO Voice ID: [id number] Report ID: [id number] SENDY
[2019-03-04] MEDS: INSULIN -REGULAR HUMAN 50 UNIT/0.5 ML ML SQ SCH ×2 (16:30→20:42)
--- NOTE | 2019-03-04 22:34 | HP ---
Date of Admission: 03/04/2019 Chief Complaint: Left flank pain, gross hematuria. Consultants: Dr. Murray with Urology. History Of Present Illness: The patient is a 53-year-old male with past medical history of COPD, hyp ertension, hyperlipidemia, diabetes, who was not on any medications. He does not have a primary care physician, who comes in with a 3 day duration of pain on his left flank. The patient also reports s ome gross hematuria with urine being tea-colored. The patient's symptoms are constant, moderate, pro gressively worsening, came into the ER for further evaluation. He also had pain on his left side, wh ich was nonradiating. No previous history of kidney stones. In the ER, his vital signs were elevate d. He was afebrile. The patient's workup revealed a creatinine of 1.38, WBC was 14,000. CT scan of the abdomen showed a 7 mm stone in the left UVJ resulting in moderate left hydronephrosis and hydrou reter and fatty liver. The patient was referred for admission. The patient received Flagyl and Roce phin along with 1 L normal saline bolus and pain medications. When seen in the ER, he was awake, mira rt, oriented x3, in some mild distress. Past Medical History: Hypertension, hyperlipidemia, diabetes mellitus type 2, non-insulin requiring. The patient is a long-term smoker, likely has COPD, never been diagnosed officially. Past Surgical History: The patient had left-sided parotid gland removal for possible malignancy, how ever, was negative. Allergies: NO KNOWN DRUG ALLERGIES. Medications: None. Social History: The patient smokes 2 packs per day, has been smoking for the past 45 years. Denies any alcohol use or illicit drug use. The patient is , independent in his activities of daily living. Family History: Cancer runs in the family. Review of Systems: An 11-point system reviewed, negative except as per HPI. Physical Examination: Vital Signs: Blood pressure 162/106, pulse 119, respirations 18, temperature 98.3, O2 96% on room ai r. General: Awake, alert, oriented x3, ill-appearing male, appears older than stated age. HEENT: Normocephalic, atraumatic. PERRLA. EOMI. Moist mucous membranes. Oropharynx is clear. Co njunctivae are anicteric. Neck: Supple. No JVD. Trachea midline. CV: S1, S2. Regular rate and rhythm. Peripheral pulses weak bilaterally. Respiratory: Clear to auscultation bilaterally. No wheezing or stridor. Gastrointestinal: Abdomen is soft, nontender, nondistended. Positive bowel sounds. The patient chun s have left-sided flank tenderness. Extremities: No clubbing, cyanosis, or edema. No calf tenderness. Neurologic: Cranial nerves II through XII intact grossly. No focal neurological deficit. Speech is normal. Strength is 5/5 bilateral upper and lower extremities. Skin: No rashes. The patient has decreased amount of hair in his legs with skin that is shiny, cons istent with peripheral arterial disease. Psychiatric: Mood is okay. Affect is full. Insight and judgment are good. Laboratory Data: WBC 14.2, H and H 15.3 and 44.7, platelets 276. INR is 1.10. Sodium 132, potassiu m 4.4, chloride 99, CO2 26, BUN 18, creatinine 1.38, glucose 193, calcium 9.4, magnesium 2.3. Tropon in less than 0.02. BNP 822. Lipase 462. UA is pending. CT scan of the abdomen and pelvis with con trast shows a 7 mm stone in left UVJ resulting in moderate left hydronephrosis and hydroureter, fatty liver. Chest x-ray, no acute intrathoracic process suspected. Assessment: A 53-year-old male with: 1.Nephrolithiasis. The patient has a 7 mm UVJ stone. The patient will be started on IV fluids. Dr Jose De Jesus Murray has been consulted. The patient to go for cystoscopy and stent placement with stone retrieva l likely today. We will continue with pain medications and we will start on IV antibiotics. UA is p ending. The patient does have gross hematuria. 2.Hydronephrosis on the left, secondary to above. We will flush with IV fluids. 3.Essential hypertension, uncontrolled, likely worse due to pain. We will start on hydralazine IV p .r.n. as the patient is n.p.o. 4.Mixed hyperlipidemia. 5.Fatty liver disease. The patient has been counseled. 6.Diabetes mellitus type 2, [id number] with hyperglycemia. The patient is not on any med ications. We will start on sliding scale insulin and monitor blood glucose levels. 7.Acute kidney injury secondary to hydronephrosis and kidney stone. We will continue to flush kidne ys with IV fluids and monitor creatinine. Avoid NSAIDs. 8.Elevated lipase. Doubt pancreatitis. CT scan does not show any abnormalities. Level is very truman se to normal, likely incidental. We will monitor. 9.Obesity, BMI 30. 10.Gastrointestinal and deep venous thrombosis prophylaxis with PPI and SCDs. No chemical anticoagu lation due to procedure. Plan: Admit the patient to Med-Surg, place as inpatient. Length of stay greater than 2 midnights. /QUIRINO Voice ID: [id number]
[2019-03-05] MEDS: MORPHINE 2 MG/ML SYR IV PRN ×2 (04:32→08:45)
[2019-03-05 04:35] LABS: Absolute Monocytes 1.4 K/uL (0.1-1.3); Absolute Neutrophil 8.5 K/uL (1.8-8.0); Basophils % 0.6 % (0-1.3); Eosinophils % 3.5 % (0-4.4); Hematocrit 41.4 % (39.6-49.0); Lymphocytes % 22.2 % (15.3-44.8); MPV 8.8 fL (7.6-11.3); Monocytes % 10.7 % (3.3-12.3); RBC Red Blood Cell Count 4.77 M/uL (4.33-5.43)
[2019-03-05 04:52] LABS: Albumin 2.8 g/dL (3.4-5.0); Bilirubin Total 0.2 mg/dL (0.2-1.0); Potassium 4.3 mmol/L (3.5-5.1); Protein, Total 7.3 g/dL (6.4-8.2)
[2019-03-05] MEDS: NA CHLORIDE 0.9% 1,000 ML IV SCH ×2 (07:05→14:12)
[2019-03-05] MEDS: INSULIN -REGULAR HUMAN 50 UNIT/0.5 ML ML SQ SCH ×3 (07:30→15:16)
[2019-03-05] MEDS: NICOTINE 21 MG/PAT TD SCH (08:46)
[2019-03-05] MEDS ORDERED: CEFTRIAXONE/SWI 1gm 1 GM/10 ML SYR IV SCH (09:00)
[2019-03-05] MEDS: NA CIT/CITRIC AC 30 ML ORAL UDC ONE ×2 (12:15→12:18)
[2019-03-05] MEDS ORDERED: FENTANYL CITR 100 MCG/2 ML ONE ×2 (12:17→13:28)
[2019-03-05] MEDS ORDERED: PROPOFOL 200 MG/20 ML VIAL IV ONE (12:17)
[2019-03-05] MEDS ORDERED: ONDANSETRON 4 MG/2 ML VIAL ONE (12:19)
[2019-03-05] MEDS ORDERED: LIDOCAINE 1% MPF 2 ML AMPULE ONE (12:19)
[2019-03-05] MEDS ORDERED: MIDAZOLAM HCL 2 MG/2 ML INJ ONE ×2 (12:20→12:57)
[2019-03-05] MEDS: NA CHLORIDE 0.9% 1,000 ML ONE ×2 (13:27→13:44)
[2019-03-05] MEDS ORDERED: Mastisol Adhesive Liq ONE (13:32)
[2019-03-05] MEDS ORDERED: D50W 25 GM/50 ML SYRINGE IV PRN (14:07)
[2019-03-05] MEDS ORDERED: GLUCAGON 1 MG/VIAL IM PRN (14:07)
[2019-03-05] MEDS ORDERED: MEPERIDINE HCL 25 MG/0.5 ML ONE ×2 (14:08→14:14)
[2019-03-05 14:12] VITALS: BP 135/83; TEMP 97.4; O2SAT 95
--- NOTE | 2019-03-05 14:29 | P.DS ---
Admission Date: 03/04/19 Discharge Date: 03/05/19 Disposition: ROUTINE DISCHARGE Discharge Condition: GOOD Reason for Admission: Nephrolithiasis Consultations: Urology, Dr. Murray Procedures: ESWL w/ ureteral stent placement Brief History of Present Illness: The patient is a 53-year-old male with past medical history of COPD, hypertension, hyperlipidemia, diabetes, who was not on any medications. He does not have a primary care physician, who comes in with a 3 day duration of pain on his left flank. The patient also reports some gross hematuria with urine being tea-colored. The patient's symptoms are constant, moderate, progressively worsening, came into the ER for further evaluation. He also had pain on his left side, which was nonradiating. No previous history of kidney stones. In the ER, his vital signs were elevated. He was afebrile. The patient's workup revealed a creatinine of 1.38, WBC was 14,000. CT scan of the abdomen showed a 7 mm stone in the left UVJ resulting in moderate left hydronephrosis and hydroureter and fatty liver. The patient was referred for admission. The patient received Flagyl and Rocephin along with 1 L normal saline bolus and pain medications. When seen in the ER, he was awake, alert, oriented x3, in some mild distress. Hospital Course: Patient was admitted for nephrolithiasis with a 7 mm UVJ stone with left-sided hydronephrosis. He was started on IV fluids. He was kept NPO, urology was consulted. Patient then underwent ESWL with stent placement on 03/05/2019. His symptoms improved after procedure and he tolerated the procedure well. He was then cleared for discharge by urology point of view. He will follow up with urology in 2 weeks for stent removal. His stay was complicated by uncontrolled blood pressure, likely secondary to pain. He was started on IV blood pressure medications as needed. No other oral blood pressure medication changes made at discharge. He also was noted to have some acute kidney injury, likely secondary to hydronephrosis and the kidney stone. This resolved with IV fluids. He otherwise remained stable throughout the stay. Prior to discharge, he was alert oriented x3, in no acute distress and hemodynamically stable. He was tolerating a diet and ambulating without any concerns. His diagnosis/treatment plan were discussed and explained to patient. All questions were answered and patient verbalized understanding. He was discharged home in a safe and stable manner. Vital Signs/Physical Exam: Temp Pulse Resp BP Pulse Ox 97.4 F 103 H 16 135/83 96 03/05/19 14:07 03/05/19 14:07 03/05/19 14:07 03/05/19 14:03/05/19 08:00 General: Alert, In no apparent distress, Oriented x3 HEENT: Atraumatic, PERRLA, EOMI Neck: Supple, JVD not distended Respiratory: Clear to auscultation bilaterally, Normal air movement Cardiovascular: Regular rate/rhythm, Normal S1 S2 Gastrointestinal: Normal bowel sounds, No tenderness Musculoskeletal: No tenderness Integumentary: No rashes Neurological: Normal speech, Normal tone, Normal affect Lymphatics: No axilla or inguinal lymphadenopathy Laboratory Data at Discharge: WBC 13.5 K/uL (4.3-10.9) H 03/05/19 03:52 Hgb 14.0 g/dL (13.6-17.9) 03/05/19 03:52 Hct 41.4 % (39.6-49.0) 03/05/19 03:52 Plt Count 272 K/uL (152-406) 03/05/19 03:52 PT 12.9 SECONDS (9.5-12.5) H 03/04/19 08:10 INR 1.10 03/04/19 08:10 Sodium 138 mmol/L (136-145) 03/05/19 03:52 Potassium 4.3 mmol/L (3.5-5.1) 03/05/19 03:52 BUN 14 mg/dL (7-18) 03/05/19 03:52 Creatinine 1.27 mg/dL (0.55-1.3) 03/05/19 03:52 Glucose 128 mg/dL (74-106) H 03/05/19 03:52 Magnesium 2.3 mg/dL (1.8-2.4) 03/04/19 08:10 Total Bilirubin 0.2 mg/dL (0.2-1.0) 03/05/19 03:52 AST 10 U/L (15-37) L 03/05/19 03:52 ALT 18 U/L (12-78) 03/05/19 03:52 Alkaline Phosphatase 88 U/L (45-117) 03/05/19 03:52 Lipase 462 U/L (73-393) H 03/04/19 08:10 Home Medications: Metformin ER [Glucophage ER*] 500 mg PO BID 10/20/15 hydroCHLOROthiazide [Hydrochlorothiazide*] 12.5 mg PO DAILY 11/06/15 Patient Discharge Instructions: Please follow up with the primary care physician in 2-3 days. Please follow up with Urology in 2 weeks. Please return to the emergency room for worsening symptoms Diet: AHA Activity: Ad sathish Followup: Aurea Murray MD [ACTIVE - CAN ADMIT] - 1-2 Weeks Time spent managing pt's care (in minutes): 55
== END 2019-03-05 15:34 | disposition home or self-care (01) | DRG 661 ==
LOC: ER 07:45 → ERHOLD 11:43 → 4TH 13:57
PROVIDERS: ADMIT Family Medicine; ATTEND Family Medicine
PROC: 0T748DZ Dilation of Left Kidney Pelvis with Intraluminal Device, Via Natural or Artificial Opening Endoscopic (ICD-10-PCS; 2019-03-05)
PROC: 0TF4XZZ Fragmentation in Left Kidney Pelvis, External Approach (ICD-10-PCS; principal; 2019-03-05 13:45)
DX: N13.2 Hydronephrosis with renal and ureteral calculous obstruction (principal); N17.9 Acute kidney failure, unspecified; I10 Essential (primary) hypertension; E78.2 Mixed hyperlipidemia; K76.0 Fatty (change of) liver, not elsewhere classified; E11.65 Type 2 diabetes mellitus with hyperglycemia; E11.51 Type 2 diabetes mellitus with diabetic peripheral angiopathy without gangrene; E66.9 Obesity, unspecified; J44.9 Chronic obstructive pulmonary disease, unspecified; F17.210 Nicotine dependence, cigarettes, uncomplicated; Z68.30 Body mass index [BMI] 30.0-30.9, adult
CPT/HCPCS: 36415; 50590; 71045; 74177; 80048; 80053; 80076; 81003; 82962; 83690; 83735; 83880; 84484; 85025; 85610; 87086; 87088; 93005; 94760; 96361; 96365; 96367; 96374; 96375; 99285; J0696; J2001; J2175; J2250; J2270; J2405; J2704; J3010; J7030; Q9967

== ENCOUNTER 2020-08-28 14:01 | Inpatient (IN) | payer BC, OTHER ==
[2020-08-28 14:59] LABS: Absolute Lymphocytes (CBC) 2.8 K/uL (0.7-4.9); Basophils % 1.1 % (0-1.3); Hematocrit 46.4 % (39.6-49.0); Lymphocytes % 22.2 % (15.3-44.8); MPV 9.6 fL (7.6-11.3); RBC Red Blood Cell Count 5.09 M/uL (4.33-5.43)
[2020-08-28 15:00] LABS: Protime INR 1.12
[2020-08-28] MEDS ORDERED: LEVALBUTEROL 1.25 MG/3 ML NEB ONE (15:02)
[2020-08-28] MEDS ORDERED: predniSONE 20 MG TAB ONE (15:02)
[2020-08-28 15:19] LABS: ALT/SGPT 50 U/L (12-78); AST/SGOT 24 U/L (15-37); Albumin 3.5 g/dL (3.4-5.0); Alkaline Phosphatase 123 U/L (45-117); BUN Blood Urea Nitrogen 13 mg/dL (7-18); Bicarbonate 26 mmol/L (21-32); Bilirubin Direct 0.3 mg/dL (0-0.2); Bilirubin Total 0.7 mg/dL (0.2-1.0); Glucose Level 280 mg/dL (74-106); NT PRO-BNP 5187 pg/mL (<125); Potassium 4.2 mmol/L (3.5-5.1); Protein, Total 7.8 g/dL (6.4-8.2); Sodium Level 139 mmol/L (136-145); Troponin (Emerg Dept Use Only) < 0.02 ng/mL (0.0-0.045)
--- NOTE | 2020-08-28 15:26 | RAD REPORT ---
EXAM DESCRIPTION: [place] Single View08/28/2020 3:00 pm CLINICAL HISTORY: Shortness of breath COMPARISON: 2019 FINDINGS: Small bilateral pleural effusions are suspected with bibasilar atelectasis. Upper lobe vessels are prominent indicative of pulmonary venous hypertension. The heart is borderline enlarged
[2020-08-28] MEDS ORDERED: NA CHLORIDE 0.9% 250 ML ONE ×2 (16:49→17:53)
--- NOTE | 2020-08-28 18:37 | EDPHYS ---
Physician Documentation [facility] Name: Danny Moreland Jr Age: 55 yrs Sex: Male : 1965 Arrival Date: 08/28/2020 Time: 14:04 Bed 20 Private MD: ED Physician Jose Juan Pulido Historical: - Allergies: 08/28 14:09 No Known Allergies; jd3 - Home Meds: 14:09 gemfibrozil Oral [Active]; losartan Oral [Active]; Metformin Oral [Active]; jd3 - PMHx: 14:09 Diabetes - NIDDM; Hypertension; jd3 - PSHx: 14:09 None; jd3 - Immunization history:: Adult Immunizations up to date. - Social history:: Smoking status: Patient reports the use of cigarette tobacco products, smokes two packs cigarettes per day. Exam: 14:35 Constitutional: This is a well developed, well nourished patient who is awake, alert, kdr and in no acute distress. Head/Face: Normocephalic, atraumatic. 14:35 ECG was reviewed by the Attending Physician. Vital Signs: 14:09 BP 130 / 99; Pulse 124; Resp 24 S; Temp 97.8(O); Pulse Ox 95% on R/A; Weight 81.65 kg jd3 (R); Height 5 ft. 4 in. (162.56 cm) (R); Pain 0/10; 15:00 BP 130 / 95; Pulse 123; Resp 20; Pulse Ox 94% ; bp 16:00 BP 110 / 84; Pulse 149; Resp 16; Pulse Ox 91% ; bp 16:47 BP 133 / 94; Pulse 145; Resp 20; Pulse Ox 92% on R/A; bp 17:48 BP 118 / 92; Pulse 144; Resp 24; Pulse Ox 92% on R/A; bp 18:40 BP 136 / 96; Pulse 137; Resp 20; Pulse Ox 96% ; bp 19:00 BP 126 / 95; Pulse 134; Resp 22; Pulse Ox 94% on R/A; lp1 19:45 BP 133 / 81; Pulse 137; Resp 21; Pulse Ox 93% on R/A; lp1 20:30 BP 126 / 80; Pulse 134; Resp 25; Pulse Ox 93% on 2 lpm NC; lp1 21:00 BP 104 / 56; Pulse 132; Resp 22; Pulse Ox 93% on 2 lpm NC; lp1 21:30 BP 113 / 92; Pulse 130; Resp 28; Pulse Ox 94% on R/A; lp1 14:09 Body Mass Index 30.90 (81.65 kg, 162.56 cm) jd3 16:00 WHILE AMBULATING bp MDM: 18:36 Patient medically screened. [facility] 08/28 14:15 Order name: Basic Metabolic Panel; Complete Time: 16:23 kdr 08/28 14:15 Order name: CBC with Diff; Complete Time: 16:23 kdr 08/28 14:15 Order name: LFT's; Complete Time: 16:23 kdr 08/28 14:15 Order name: Magnesium; Complete Time: 16:23 kdr 08/28 14:15 Order name: NT PRO-BNP; Complete Time: 16:23 kdr 08/28 14:15 Order name: PT-INR; Complete Time: 16:23 kdr 08/28 14:15 Order name: Troponin (emerg Dept Use Only); Complete Time: 16:23 kdr 08/28 14:15 Order name: XRAY Chest (1 view); Complete Time: 16:23 kdr 08/28 18:37 Order name: COVID-19 [facility] 08/28 19:12 Order name: ABG; Complete Time: 20:20 al08/28 20:02 Order name: Procalcitonin; Complete Time: 21:31 al08/28 20:02 Order name: Lactate; Complete Time: 21:31 [facility] 08/28 20:02 Order name: Blood Culture Adult (2) [facility] 08/28 14:15 Order name: EKG; Complete Time: 14:17 kdr 08/28 14:15 Order name: Cardiac monitoring; Complete Time: 14:32 kdr 08/28 14:15 Order name: EKG - Nurse/Tech; Complete Time: 14:32 kdr 08/28 14:15 Order name: IV Saline Lock; Complete Time: 14:55 kdr 08/28 14:15 Order name: Labs collected and sent; Complete Time: 14:55 kdr 08/28 14:16 Order name: O2 Per Protocol; Complete Time: 14:33 kdr 08/28 14:16 Order name: O2 Sat Monitoring; Complete Time: 14:33 kdr 10/30 19:04 Order name: CT Chest For PE Angio; Complete Time: 19:50 la1 EC:35 Rate is 125 beats/min. Rhythm is regular, Sinus tachycardia with No ectopy. Right axis kdr deviation noted. OH interval is normal. QRS interval is normal. QT interval is normal. Clinical impression: Sinus tachycardia. Administered Medications: 14:30 Drug: Xopenex (3) 1.25 mg Route: Inhalation; bp 14:30 Drug: predniSONE 60 mg Route: PO; bp 17:48 Follow up: Response: No adverse reaction bp 16:30 Drug: NS 0.9% 250 ml Route: IV; Rate: bolus; Site: left antecubital; bp 17:30 Drug: NS 0.9% 250 ml Route: IV; Rate: bolus; Site: left antecubital; bp 20:45 Drug: Lasix 20 mg Route: IVP; Site: left antecubital; lp1 20:45 Drug: Metoprolol 5 mg Route: IVP; Site: left antecubital; lp1 Disposition: 08/28/20 18:36 Hospitalization ordered by Ephraim Robledo for Observation. Preliminary diagnosis is COPD Exacerbation, SOB, CHF. - Bed requested for Telemetry/MedSurg (observation). - Status is Observation. lp1 - Condition is Fair. - Problem is an acute exacerbation. - Symptoms have improved. Addendum: 08/30/2020 06:46 Addendum: CC: SOB HPI: For the last few weeks, the patient has had increasing SOB. He k states that this happens this time of year and he normally get an inhaler and steroids and is better. he appears noticeably dyspneic at rest or with minimal exertion. Addendum: ROS: HEENT: No pain, sore throat or ear aches or congestion, Neck: No pain or injury, Chest No chest pain, Lungs: SOB, cough and congestion, Abdomen: No n/v/d and no pain, : no c/o, Ext: no pain, injury or swelling, Neuro: no PICKETT or neuro c/o, Psych: No SI/HI, Exam: APOLINAR WM mild to moderate distress, Head: Normal cephalic/atraumatic, Neck Supple and FROM, Chest Normal, no pain or injury, Cor: moderate tachycardia but regular, Lungs: rales and rhonchi scattered bilaterally, Abd: not tender, normal BS, Ext: normal no pulse deficits and FROM, Neuro: A\T\O x 3 no deficits, MDM: The patient persisted with SOB and tachycardia despite interventions given. Will admit for further evaluation and treatment . Signatures: Dispatcher [employer] EDMS Jose Juan Pulido MD MD kdr Carleen Thompson RN RN lp1 Jaret Rahman, PIE ICER MACHINE-C PIE ICER MACHINE-Cla1 Shelly Yang, RN RN cg Adilson Gamez RN RN jDarnell Brooks RN RN bp Corrections: (The following items were deleted from the chart) 08/28 19:06 19:00 D-DIMER+COAG.LAB.BRZ ordered. EDKY EDKY 20:16 18:36 Hospitalization Ordered by Ephraim Robledo MD for Observation. Preliminary cg diagnosis is COPD Exacerbation, SOB, CHF. Bed requested for Telemetry/MedSurg (observation). Status is Observation. Condition is Fair. Problem is an acute exacerbation. Symptoms have improved. kdr 21:53 20:16 08/28/2020 18:36 Hospitalization Ordered by Ephraim Robledo MD for Observation. lp1 Preliminary diagnosis is COPD Exacerbation, SOB, CHF. Bed requested for Telemetry/MedSurg (observation). Status is Observation. Condition is Fair. Problem is an acute exacerbation. Symptoms have improved. cg
--- NOTE | 2020-08-28 18:37 | ER ---
Nurse's Notes [facility] Name: Danny Moreland Jr Age: 55 yrs Sex: Male : 1965 Arrival Date: 08/28/2020 Time: 14:04 Bed 20 Private MD: Diagnosis: COPD Exacerbation, SOB, CHF Presentation: 08/28 14:07 Chief complaint: Patient states: "I am having a problem breathing and catching my jd3 breath. normally I get an inhaler and some steroids and I am all better. this happens once a year about.". Coronavirus screen: cough unrelated to allergies, difficulty breathing, Client presents with at least one sign or symptom that may indicate coronavirus-19. Standard/surgical mask placed on the client. Provider contacted for isolation considerations. Ebola Screen: Patient negative for fever greater than or equal to 101.5 degrees Fahrenheit, and additional compatible Ebola Virus Disease symptoms. Initial Sepsis Screen: Does the patient meet any 2 criteria? No. Patient's initial sepsis screen is negative. Does the patient have a suspected source of infection? No. Patient's initial sepsis screen is negative. Risk Assessment: Do you want to hurt yourself or someone else? Patient reports no desire to harm self or others. Onset of symptoms was July 27, 2020. 14:07 Method Of Arrival: Ambulatory jd3 14:07 Acuity: HUGO 3 jd3 Triage Assessment: 14:10 General: Appears in no apparent distress. comfortable, Behavior is cooperative, bp appropriate for age, anxious. Pain: Denies pain. EENT: Reports nasal congestion. Neuro: No deficits noted. Cardiovascular: No deficits noted. Respiratory: Reports shortness of breath at rest cough that is Onset: The symptoms/episode began/occurred yesterday, the patient has moderate shortness of breath. GI: No signs and/or symptoms were reported involving the gastrointestinal system. : No signs and/or symptoms were reported regarding the genitourinary system. Derm: No deficits noted. Musculoskeletal: No deficits noted. Historical: - Allergies: 14:09 No Known Allergies; jd3 - Home Meds: 14:09 gemfibrozil Oral [Active]; losartan Oral [Active]; Metformin Oral [Active]; jd3 - PMHx: 14:09 Diabetes - NIDDM; Hypertension; jd3 - PSHx: 14:09 None; jd3 - Immunization history:: Adult Immunizations up to date. - Social history:: Smoking status: Patient reports the use of cigarette tobacco products, smokes two packs cigarettes per day. Screenin:15 Abuse screen: Denies threats or abuse. Denies injuries from another. Nutritional bp screening: No deficits noted. Tuberculosis screening: No symptoms or risk factors identified. Fall Risk None identified. Assessment: 14:10 General: SEE TRIAGE NOTE. bp 15:21 Reassessment: Patient states symptoms have improved. Cardiovascular: Rhythm is sinus bp rhythm. Respiratory: Airway is patent Respiratory effort is even, labored, Breath sounds with wheezes bilaterally. 16:46 Reassessment: ST NOTED ON MONITOR AFTER NEBS. MD AT B/S FOR RE-EVAL. NS INFUSING bp Patient states feeling better. Respiratory: Airway is patent Respiratory effort is even, labored, Breath sounds with wheezes bilaterally. 17:49 Reassessment: No changes from previously documented assessment. IVF INFUSING. PT bp REMAINS ST ON MONITOR. MD NOTIFIED Patient states feeling better. 18:40 Reassessment: ADMIT INITIATED. COVID IN PROCESS. PT REMAINS ST ON MONITOR. bp 19:05 Reassessment: Hospitalist at bedside to discuss care with patient. lp1 20:15 Reassessment: patient aware of waiting for COVID results prior to transfer to floor. lp1 20:45 Reassessment: Patient reports feeling trapped in room, "I just need to step outside, I lp1 feel anxious and trapped here"; Offered fan in room, open door for comfort; patient appears to calm down, given water per request;. 20:45 Respiratory: Respiratory effort is even, Respiratory pattern is tachypnea. lp1 21:20 Reassessment: Patient expressing wanting to go home at this time; states feeling lp1 anxious, trapped in hospital, "I need to go outside, I've been in here too long"; Offered patient comfort needs, medication for anxiety for comfort, patient declines any comfort measures; RENEE Olivia notified. 21:33 Reassessment: RENEE Olivia at bedside to discuss care with patient; patient lp1 continues to decline any comfort measures; Demonstrates understanding of leaving AMA, states "I will come back in the morning, I just need to get out, I've been here for 8 hours". Vital Signs: 14:09 BP 130 / 99; Pulse 124; Resp 24 S; Temp 97.8(O); Pulse Ox 95% on R/A; Weight 81.65 kg jd3 (R); Height 5 ft. 4 in. (162.56 cm) (R); Pain 0/10; 15:00 BP 130 / 95; Pulse 123; Resp 20; Pulse Ox 94% ; bp 16:00 BP 110 / 84; Pulse 149; Resp 16; Pulse Ox 91% ; bp 16:47 BP 133 / 94; Pulse 145; Resp 20; Pulse Ox 92% on R/A; bp 17:48 BP 118 / 92; Pulse 144; Resp 24; Pulse Ox 92% on R/A; bp 18:40 BP 136 / 96; Pulse 137; Resp 20; Pulse Ox 96% ; bp 19:00 BP 126 / 95; Pulse 134; Resp 22; Pulse Ox 94% on R/A; lp1 19:45 BP 133 / 81; Pulse 137; Resp 21; Pulse Ox 93% on R/A; lp1 20:30 BP 126 / 80; Pulse 134; Resp 25; Pulse Ox 93% on 2 lpm NC; lp1 21:00 BP 104 / 56; Pulse 132; Resp 22; Pulse Ox 93% on 2 lpm NC; lp1 21:30 BP 113 / 92; Pulse 130; Resp 28; Pulse Ox 94% on R/A; lp1 14:09 Body Mass Index 30.90 (81.65 kg, 162.56 cm) jd3 16:00 WHILE AMBULATING bp ED Course: 14:04 Patient arrived in ED. ag5 14:08 Triage completed. jd3 14:11 Arm band placed on. jd3 14:13 Darnell Nicole, RN is Primary Nurse. bp 14:14 Jose Juan Pulido MD is Attending Physician. kdr 14:15 Patient has correct armband on for positive identification. Bed in low position. Call bp light in reach. Side rails up X2. 14:30 Inserted saline lock: 20 gauge in left antecubital area, using aseptic technique. Blood bp collected. 15:01 XRAY Chest (1 view) In Process Unspecified. EDMS 18:35 Ephraim Robledo MD is Hospitalizing Provider. kdr 19:06 No provider procedures requiring assistance completed. Patient admitted, IV remains in lp1 place. 19:19 CT Chest For PE Angio In Process Unspecified. EDMS Administered Medications: 14:30 Drug: Xopenex (3) 1.25 mg Route: Inhalation; bp 14:30 Drug: predniSONE 60 mg Route: PO; bp 17:48 Follow up: Response: No adverse reaction bp 16:30 Drug: NS 0.9% 250 ml Route: IV; Rate: bolus; Site: left antecubital; bp 17:30 Drug: NS 0.9% 250 ml Route: IV; Rate: bolus; Site: left antecubital; bp 20:45 Drug: Lasix 20 mg Route: IVP; Site: left antecubital; lp1 20:45 Drug: Metoprolol 5 mg Route: IVP; Site: left antecubital; lp1 Outcome: 18:36 Decision to Hospitalize by Provider. kdr 21:53 AMA AMA form signed lp1 21:53 Condition: unchanged 21:53 Patient left the ED. lp1 Signatures: Dispatcher [employer] EDMS Jose Juan Pulido MD MD kdr Carleen Thompson RN RN lp1 Adilson Gamez RN RN jd3 Peltier, Brian, RN RN bp Gaskin, Ajare ag5 Corrections: (The following items were deleted from the chart) 14:12 14:07 Chief complaint: Patient states: "I am having a problem breathing and catching my jd3 breath." jd3 22:54 20:45 Reassessment: Patient reports feeling trapped in room, "I just need to step lp1 outside, I feel anxious and trapped here"; Offered fan in room, open door for comfort; patient appears to calm down, given water per request; lp1 22:54 20:45 Reassessment: Patient reports lp1 lp1
[2020-08-28 19:37] LABS: Blood Gas Oxyhemoglobin 87.3 % (94-97); Blood O2 Saturation 91.9 % (92-98.5)
--- NOTE | 2020-08-28 19:41 | RAD REPORT ---
EXAM DESCRIPTION: CT - Chest For Pe Angio - 08/28/2020 7:19 pm CLINICAL HISTORY: sob COMPARISON: 2014 TECHNIQUE: Dynamically enhanced axial 3 mm thick images of the chest were obtained during administra tion of <100> mL Isovue 370 IV contrast. Coronal and oblique reconstruction images were generated and reviewed. Exam utilizes a protocol for optimal evaluation of pulmonary arterial tree. Maximum intensity projections 3D imaging was utilized All CT scans are performed using dose optimization technique as appropriate and may include automated exposure control or mA/KV adjustment according to patient size. FINDINGS: A pulmonary embolus is not seen. A thoracic aortic aneurysm is not noted. A small to moderate right and small left pleural effusions. . A pericardial effusion is not seen. The heart is enlarged. Right lower lobe opacity probably atelectasis. . Upper lobe vessels are prominent indicative of pulmo nary venous hypertension IMPRESSION: Negative for a pulmonary embolism. Small to moderate right and small left pleural effusions
--- NOTE | 2020-08-28 20:15 | P.HP ---
Certification for Inpatient Patient admitted to: Inpatient With expected LOS: >2 Midnights Patient will require the following post-hospital care: None Practitioner: I am a practitioner with admitting privileges, knowledge of patient current condition, hospital course, and medical plan of care. Services: Services provided to patient in accordance with Admission requirements found in Title 42 Section 412.3 of the Code of Federal Regulations <Jaret Rahman - Last Filed: 08/28/20 20:09> Patient History Date of Service: 08/28/20 Primary Care Provider: None Reason for admission: COPD exacerbation History of Present Illness: 55-year-old male with history of diabetes mellitus type 2, hypertension, COPD, tobacco abuse presents emergency department for shortness of breath. Patient reports that he has been having progressive shortness of breath over the last 2 weeks. Shortness of breath is made significantly worse with exertion, even walking short distances like from his truck to the emergency department. Patient denies any history of CHF or cardiac issues. Patient was initially tachycardic with a heart rate around 130 in the emergency department, patient was also wheezing. Patient given Xopenex, prednisone and small amounts of fluid bolus in the emergency department. Patient remains tachycardic with a heart rate around 135 at this time. Ordered CT PE protocol and ABG in the emergency department, CT shows small to moderate pleural effusions bilaterally that were not loculated, ABG shows pH 7.44, pCO2 27.2, PO2 60.9. Labs remarkable for white blood cell count 12.5, blood glucose 280, BNP 5187. Patient in mild respiratory distress, tachypneic but able to speak in full sent ences in stating he does not feel subjectively significantly short of breath. ED provider wishes to admit patient for further evaluation and management. Case discussed with pulmonology and hospitalist attending, there is likely some failure component given elevated BNP, pleural effusions, chest x-ray suggestive of pulmonary hypertension. Patient be admitted for further evaluation and management. 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[employer] - Family History Father -: Lung disease, Cancer Notes: lung cancer Mother -: Cancer Notes: breast cancer - Social History Smoking Status: Heavy Tobacco smoker (>10 cigarettes/day) Counseled patient to stop smoking for: more than 10 minutes Smoking therapy provided: Yes Patient receptive to therapy: Yes Alcohol use: No CD- Drugs: No Caffeine use: Yes Place of Residence: Home <Jaret Rahman - Last Filed: 08/28/20 20:09> Date of Service: 08/29/20 <Ephraim Robledo - Last Filed: 08/29/20 10:24> Allergies No Known Drug Allergies Allergy (Verified 03/04/19 13:37) Unknown Home Medications: Metformin ER [Glucophage ER*] 500 mg PO BID 10/20/15 hydroCHLOROthiazide [Hydrochlorothiazide*] 12.5 mg PO DAILY 11/06/15 Review of Systems 10-point ROS is otherwise unremarkable Respiratory: Cough, Shortness of Breath, SOB with Excertion, Sputum, Wheezing <Jaret Rahman - Last Filed: 08/28/20 20:09> Physical Examination - Physical Exam General: Alert, In no apparent distress, Oriented x3 HEENT: Atraumatic, Normocephalic, PERRLA Neck: Supple Respiratory: Expiratory wheezes (Bilaterally, mild to moderate) Cardiovascular: Regular rate/rhythm (Sinus tachycardia 130), Normal S1 S2, No murmurs Capillary refill: <2 Seconds Gastrointestinal: Normal bowel sounds, Soft and benign Musculoskeletal: No contractures, No erythema, No tenderness Integumentary: No significant lesion, No tenderness/swelling, No erythema Neurological: Normal speech, Normal strength at 5/5 x4 extr, Normal tone, Sensation intact - Studies Laboratory Data (last 24 hrs) 08/28/20 14:45: PT 13.2 H, INR 1.12 08/28/20 14:45: WBC 12.5 H, Hgb 15.1, Hct 46.4, Plt Count 217 08/28/20 14:45: Sodium 139, Potassium 4.2, BUN 13, Creatinine 1.07, Glucose 280 H, Magnesium 2.0, Total Bilirubin 0.7, AST 24, ALT 50, Alkaline Phosphatase 123 H <Jaret Rahman - Last Filed: 08/28/20 20:09> - Studies Laboratory Data (last 24 hrs) 08/28/20 14:45: PT 13.2 H, INR 1.12 08/28/20 14:45: WBC 12.5 H, Hgb 15.1, Hct 46.4, Plt Count 217 08/28/20 14:45: Sodium 139, Potassium 4.2, BUN 13, Creatinine 1.07, Glucose 280 H, Magnesium 2.0, Total Bilirubin 0.7, AST 24, ALT 50, Alkaline Phosphatase 123 H <Ephraim Robledo - Last Filed: 08/29/20 10:24> Assessment and Plan - Plan Assessment COPD exacerbation with mild hypoxemia Bilateral pleural effusions likely secondary to pulmonary hypertension with heart failure component Hypertension Diabetes mellitus type 2 Tobacco abuse Plan COPD exacerbation with mild hypoxemia: Scheduled nebs, IV steroids. Pulmonology consult in place. Monitor on telemetry. Continuous pulse oximetry, BiPAP as needed. Respiratory therapy consult in place, wean off oxygen as tolerated. Blood culture, sputum cultures obtained. Lactate, pro calcitonin levels pending, COVID test pending. Bilateral pleural effusions likely secondary to pulmonary hypertension with heart failure component: Discussed with pulmonology, likely there is a failure component with elevated BNP and pleural effusions. Continue with daily Lasix, given dose of spironolactone in the emergency department. P.r.n. beta-blockers for tachycardia. Hypertension: Obtain and continue home medications, initiate beta-edson therapy with hold parameters. Diabetes mellitus type 2: A.c. HS Accu-Cheks, sliding scale insulin therapy. Will obtain A1c with morning labs. Tobacco abuse: Counseled on need for tobacco cessation extensively, provide patient with nicotine patch. Discharge Plan: Home Plan to discharge in: 48 Hours - Advance Directives Does patient have a Living Will: No Does patient have a Durable POA for Healthcare: No - Code Status/Comfort Care Code Status Assessed: Yes (Full code) Critical Care: No Time Spent Managing Pts Care (In Minutes): 55 <Jaret Rahman - Last Filed: 08/28/20 20:09> Physician Review Additional Text: Plan of care discussed with Jaret Rahman and agree as outlined above. Patient left AMA prior to me seeing the patient. <Ephraim Robledo - Last Filed: 08/29/20 10:24>
[2020-08-28] MEDS ORDERED: METOPROLOL TARTRATE 5 MG/5 ML INJ IV ONE (20:48)
[2020-08-28] MEDS ORDERED: FUROSEMIDE 20 MG/ 2ML VIAL ONE (20:48)
[2020-08-28] MEDS ORDERED: SPIRONOLACTONE 25 MG TABLET ONE (21:14)
[2020-08-28 22:24] VITALS: TEMP 97.8
[2020-08-28 22:41] VITALS: BP 113/92; O2SAT 94
--- NOTE | 2020-08-30 10:14 | EKG ---
Test Date: 2020-08-28 Test Time: 14:31:31 Cell Cleaner: STORM MEASUREMENT RESULTS: Intervals: Rate: 125 ID: [id number] QRSD: 92 QT: 388 QTc: 560 [place]: P: ID: [id number] QRS: 137 T: 36 INTERPRETIVE STATEMENTS: Sinus tachycardia Right axis deviation Septal infarct, age undetermined Abnormal ECG Compared to ECG 03/04/2019 08:19:40 Right-axis deviation now present Myocardial infarct finding now present Electronically Signed On 08-30-20 10:10:31 TELECOMMUNICATION SYSTEMS DESIGNER by Yury Duke
== END 2020-08-28 20:55 | disposition left against medical advice (07) | DRG 291 ==
LOC: ER 14:01 → ERHOLD 20:51
PROVIDERS: ADMIT Hospitalist; ATTEND Hospitalist
DX: I11.0 Hypertensive heart disease with heart failure (principal); J96.21 Acute and chronic respiratory failure with hypoxia; J44.1 Chronic obstructive pulmonary disease with (acute) exacerbation; I50.23 Acute on chronic systolic (congestive) heart failure; E11.9 Type 2 diabetes mellitus without complications; F17.210 Nicotine dependence, cigarettes, uncomplicated; F41.9 Anxiety disorder, unspecified; I27.23 Pulmonary hypertension due to lung diseases and hypoxia; R00.0 Tachycardia, unspecified; Z60.2 Problems related to living alone; Z53.29 Procedure and treatment not carried out because of patient's decision for other reasons; Z79.899 Other long term (current) drug therapy; Z79.84 Long term (current) use of oral hypoglycemic drugs; Z71.6 Tobacco abuse counseling; Z20.828 Contact with and (suspected) exposure to other viral communicable diseases
CPT/HCPCS: 36415; 71045; 71275; 80048; 80076; 82805; 83605; 83735; 83880; 84145; 84484; 85025; 85610; 87040; 93005; 96374; 96375; 99285; J1940; J7050; J7512; Q9967; U0003

== ENCOUNTER 2020-09-06 21:50 | Inpatient (IN) | payer BC ==
[2020-09-06] MEDS ORDERED: LEVALBUTEROL 1.25 MG/3 ML NEB ONE (23:04)
[2020-09-06 23:12] LABS: Absolute Lymphocytes (CBC) 3.4 K/uL (0.7-4.9); Hematocrit 49.9 % (39.6-49.0); Lymphocytes % 18.9 % (15.3-44.8); RBC Red Blood Cell Count 5.51 M/uL (4.33-5.43)
[2020-09-06] MEDS ORDERED: FUROSEMIDE 40 MG/4 ML VIAL ONE (23:14)
[2020-09-06 23:16] LABS: Protime INR 1.12
[2020-09-06 23:41] LABS: ALT/SGPT 62 U/L (12-78); AST/SGOT 29 U/L (15-37); Albumin 3.2 g/dL (3.4-5.0); Alkaline Phosphatase 154 U/L (45-117); BUN Blood Urea Nitrogen 23 mg/dL (7-18); Bicarbonate 24 mmol/L (21-32); Bilirubin Direct 0.2 mg/dL (0-0.2); Bilirubin Total 0.6 mg/dL (0.2-1.0); Glucose Level 344 mg/dL (74-106); Magnesium 2.3 mg/dL (1.8-2.4); NT PRO-BNP 3945 pg/mL (<125); Potassium 4.4 mmol/L (3.5-5.1); Protein, Total 6.9 g/dL (6.4-8.2); Sodium Level 137 mmol/L (136-145); Troponin (Emerg Dept Use Only) < 0.02 ng/mL (0.0-0.045)
[2020-09-07] MEDS ORDERED: CEFTRIAXONE/SWI 1gm 1 GM/10 ML SYR ONE (00:26)
--- NOTE | 2020-09-07 00:38 | ER ---
Nurse's Notes [facility] Name: Danny Moreland Jr Age: 55 yrs Sex: Male : 1965 Arrival Date: 09/06/2020 Time: 21:53 Bed 18 Private MD: Diagnosis: Chronic obstructive pulmonary disease with (acute) exacerbation Presentation: 09/06 22:05 Chief complaint: Patient states: Swollen legs for 3 days with SOB. No fever. Slight ll1 cough still. Coronavirus screen: Client denies travel out of the [place] in the last 14 days. cough unrelated to allergies, difficulty breathing, fatigue, nausea, Client presents with at least one sign or symptom that may indicate coronavirus-19. Standard/surgical mask placed on the client. Ebola Screen: Patient denies travel to an Ebola-affected area in the 21 days before illness onset. Initial Sepsis Screen: Does the patient meet any 2 criteria? RR > 20 per min. HR > 90 bpm. Yes Does the patient have a suspected source of infection? Yes: Productive cough/pneumonia. Risk Assessment: Do you want to hurt yourself or someone else? Patient reports no desire to harm self or others. Onset of symptoms was September 04, 2020. 22:05 Method Of Arrival: Ambulatory ll1 22:05 Acuity: HUGO 2 ll1 Historical: - Allergies: 22:04 No Known Drug Allergies; ll1 - PMHx: 22:04 Diabetes - NIDDM; Hypertension; ll1 - PSHx: 22:04 None; ll1 - Immunization history:: Flu vaccine is not up to date. - Social history:: Smoking status: Patient reports the use of cigarette tobacco products, smokes one-half pack cigarettes per day. Screenin:00 Abuse screen: Denies threats or abuse. Denies injuries from another. Nutritional wh screening: No deficits noted. Tuberculosis screening: No symptoms or risk factors identified. Fall Risk None identified. Assessment: 22:00 General: Appears distressed, uncomfortable, Behavior is cooperative, listless. Pain: wh Denies pain. Neuro: Level of Consciousness is awake, alert, obeys commands, Oriented to person, place, time, situation, Appropriate for age. Cardiovascular: Heart tones S1 S2 Edema. Respiratory: Reports shortness of breath at rest Airway is patent Respiratory effort is labored, Respiratory pattern is tachypnea Breath sounds with wheezes. GI: Abdomen is flat, non-distended. : No signs and/or symptoms were reported regarding the genitourinary system. EENT: No signs and/or symptoms were reported regarding the EENT system. Derm: Skin is intact, is healthy with good turgor, Skin is pink, warm \T\ dry. normal. Musculoskeletal: Circulation, motion, and sensation intact. 23:30 Reassessment: Patient appears in no apparent distress at this time. No changes from previously documented assessment. Patient and/or family updated on plan of care and expected duration. Pain level reassessed. Patient is alert, oriented x 3, equal unlabored respirations, skin warm/dry/pink. 23:58 Reassessment: Provider notified of lactate of 2.5, Verbal order for 1 g of Rocephin IV lp1 now. 09/07 00:55 Reassessment: Patient appears in no apparent distress at this time. Patient and/or family updated on plan of care and expected duration. Pain level reassessed. Patient is alert, oriented x 3, equal unlabored respirations, skin warm/dry/pink. MD at bedside explaining POC need for admit Patient states feeling better. Patient states symptoms have improved. Vital Signs: 09/06 22:05 BP 116 / 91; Pulse 138; Resp 30; Temp 97.4; Pulse Ox 96% on R/A; Weight 81.65 kg; ll1 Height 5 ft. 4 in. (162.56 cm); Pain 4/10; 22:15 BP 123 / 94; Pulse 139; Resp 24; Pulse Ox 97% on BiPAP; 23:45 BP 132 / 69; Pulse 138; Resp 22; Pulse Ox 94% on BiPAP; 09/07 00:58 BP 120 / 91; Pulse 138; Resp 21; Pulse Ox 97% on BiPAP; 09/06 22:05 Body Mass Index 30.90 (81.65 kg, 162.56 cm) ll1 ED Course: 09/06 21:53 Patient arrived in ED. cl3 22:05 Arm band placed on Patient placed in an exam room, on a stretcher. 1 22:07 Triage completed. 1 22:14 Kali Chiu PA is PHCP. [facility] 22:14 Brenden Burgess MD is Attending Physician. [facility] 22:16 Notified Charge Nurse of sepsis alert called, moved by wheelchair to ER bed 6. ll1 22:17 Patient has correct armband on for positive identification. Placed in gown. Bed in low ll1 position. Call light in reach. Side rails up X 1. Pulse ox on. NIBP on. 22:21 Diaz Elias is Primary Nurse. 22:30 Inserted saline lock: 20 gauge in right antecubital area, using aseptic technique. Blood collected. 22:41 XRAY Chest (1 view) In Process Unspecified. EDKS 09/07 00:37 Brain Koenig MD is Hospitalizing Provider. [facility] 00:56 No provider procedures requiring assistance completed. Patient admitted, IV remains in place. Administered Medications: 09/06 22:55 Drug: Xopenex (3) 1.25 mg {Note: Gibven via BIPAP neb by RT.} Route: Inhalation; 23:12 Drug: Lasix 40 mg Route: IVP; Site: right antecubital; 09/07 00:34 Follow up: Response: No adverse reaction 00:34 Drug: Rocephin 1 grams Route: IV; Rate: per protocol; Site: right antecubital; 00:56 Follow up: Response: No adverse reaction; IV Status: Completed infusion Outcome: 00:38 Decision to Hospitalize by Provider. [facility] 00:56 Admitted to ER Hold. Please see [facility] for further documentation. 00:56 Condition: stable 00:56 Instructed on the need for admit. 09:19 Patient left the ED. jl7 Signatures: Dispatcher [employer] EDKS Kali Chiu PA PA [facility] Carleen Thompson, RN RN lp1 Lalo Felix RN RN jl7 Diaz Elias Genoveva Beard3 Sulema Beard, RN RN ll1
--- NOTE | 2020-09-07 00:38 | EDPHYS ---
Physician Documentation [facility] Name: Danny Moreland Jr Age: 55 yrs Sex: Male : 1965 Arrival Date: 09/06/2020 Time: 21:53 Bed 18 Private MD: ED Physician Brenden Burgess HPI: 09/06 22:34 This 55 yrs old Male presents to ER via Ambulatory with complaints of jmm shortness of breath. 22:34 The patient has shortness of breath at rest. Onset: The symptoms/episode began/occurred jmm gradually, 1 week(s) ago. Duration: The symptoms are continuous, and are steadily getting worse. The patient's shortness of breath is aggravated by nothing, is alleviated by nothing. Associated signs and symptoms: Pertinent positives: non-productive cough, Pertinent negatives: chest pain. This is a 55 year old male with a history of htn, DM, that presents to the ED with complaints of lower extremity swelling, shortness of breath. patient was initially evaluatedin the ED approx 1 week ago and left against medical advice for CHF/COPD exacerbation. Patient was prescribed levaquin, prednisone and albuterol with little relief. . Historical: - Allergies: 22:04 No Known Drug Allergies; ll1 - PMHx: 22:04 Diabetes - NIDDM; Hypertension; ll1 - PSHx: 22:04 None; ll1 - Immunization history:: Flu vaccine is not up to date. - Social history:: Smoking status: Patient reports the use of cigarette tobacco products, smokes one-half pack cigarettes per day. ROS: 22:34 Constitutional: Negative for fever, chills, and weight loss, Cardiovascular: Negative jmm for chest pain, palpitations, and edema. 22:34 Respiratory: Positive for shortness of breath. 22:34 MS/extremity: Positive for swelling. 22:34 All other systems are negative. Exam: 22:34 Constitutional: This is a well developed, well nourished patient who is awake, alert, jmm and in no acute distress. Head/Face: atraumatic. Eyes: EOMI, no conjunctival erythema appreciated ENT: Moist Mucus Membranes Neck: Trachea midline, Supple Chest/axilla: Normal chest wall appearance and motion. 22:34 Back: Normal ROM Skin: General appearance color normal MS/ Extremity: Moves all extremities, no obvious deformities appreciated, no edema noted to the lower extremities Neuro: Awake and alert, normal gait Psych: Behavior is normal, Mood is normal, Patient is cooperative and pleasant 22:34 Cardiovascular: Rate: tachycardic, Rhythm: regular. 22:34 Respiratory: moderate respiratory distress is noted, Respirations: labored breathing, that is moderate, Breath sounds: wheezing: that is moderate, is heard diffusely. Vital Signs: 22:05 BP 116 / 91; Pulse 138; Resp 30; Temp 97.4; Pulse Ox 96% on R/A; Weight 81.65 kg; ll1 Height 5 ft. 4 in. (162.56 cm); Pain 4/10; 22:15 BP 123 / 94; Pulse 139; Resp 24; Pulse Ox 97% on BiPAP; wh 23:45 BP 132 / 69; Pulse 138; Resp 22; Pulse Ox 94% on BiPAP; wh 09/07 00:58 BP 120 / 91; Pulse 138; Resp 21; Pulse Ox 97% on BiPAP; wh 09/06 22:05 Body Mass Index 30.90 (81.65 kg, 162.56 cm) ll1 MDM: 09/06 22:25 Patient medically screened. [facility] 22:58 Data reviewed: vital signs, nurses notes. Counseling: I had a detailed discussion with [facility] the patient and/or guardian regarding: the historical points, exam findings, and any diagnostic results supporting the discharge/admit diagnosis. 09/07 00:37 ED course: I discussed the patient with Dr. Koenig whom accepted admission. . [facility] 09/06 22:18 Order name: Basic Metabolic Panel; Complete Time: 00:15 [facility] 09/06 22:18 Order name: CBC with Diff; Complete Time: 23:27 [facility] 09/06 22:18 Order name: LFT's; Complete Time: 00:15 [facility] 09/06 22:18 Order name: Magnesium; Complete Time: 00:15 [facility] 09/06 22:18 Order name: NT PRO-BNP; Complete Time: 00:15 [facility] 09/06 22:18 Order name: PT-INR; Complete Time: 23:27 [facility] 09/06 22:18 Order name: Troponin (emerg Dept Use Only); Complete Time: 00:15 [facility] 09/06 22:18 Order name: Procalcitonin; Complete Time: 00:15 [facility] 09/06 22:18 Order name: Lactate; Complete Time: 00:15 [facility] 09/06 22:18 Order name: Blood Culture Adult (2) [facility] 09/06 22:55 Order name: COVID-19 tt3 09/07 01:03 Order name: Basic Metabolic Panel [facility] 09/07 01:03 Order name: Basic Metabolic Panel [facility] 09/07 01:03 Order name: CBC with Automated Diff [facility] 09/06 22:18 Order name: XRAY Chest (1 view) [facility] 09/07 01:03 Order name: CBC with Automated Diff [facility] 09/07 01:03 Order name: NT PRO-BNP [facility] 09/07 01:03 Order name: NT PRO-BNP [facility] 09/07 01:03 Order name: Troponin I [facility] 09/07 01:03 Order name: Troponin I [facility] 09/07 01:03 Order name: Troponin I [facility] 09/07 02:43 Order name: Lactate Sepsis 2 HR Follow-up [facility] 09/07 06:55 Order name: CBC with Automated Diff [facility] 09/07 07:03 Order name: SARS-COV-2 RT PCR [facility] 09/07 07:15 Order name: Basic Metabolic Panel [facility] 09/07 07:37 Order name: Glucose, Ancillary Testing [facility] 09/07 07:44 Order name: Lipid Profile [facility] 09/07 07:44 Order name: T4 Free [facility] 09/07 07:44 Order name: Thyroid Stimulating Hormone [facility] 09/07 07:50 Order name: Hemoglobin A1c [facility] 09/06 22:18 Order name: EKG; Complete Time: 22:19 [facility] 09/06 22:18 Order name: Cardiac monitoring; Complete Time: 22:55 [facility] 09/06 22:18 Order name: EKG - Nurse/Tech; Complete Time: 22:55 [facility] 09/06 22:18 Order name: IV Saline Lock; Complete Time: 22:55 [facility] 09/06 22:18 Order name: Labs collected and sent; Complete Time: 22:55 [facility] 09/06 22:18 Order name: O2 Per Protocol; Complete Time: 22:55 [facility] 09/06 22:18 Order name: O2 Sat Monitoring; Complete Time: 22:55 [facility] 09/06 22:18 Order name: US Extremity Venous W Compression [place] [facility] 09/06 22:21 Order name: BIPAP [facility] 09/07 01:04 Order name: Respiratory Therapy Consult [facility] 09/07 01:04 Order name: Echo with Doppler [facility] 09/07 01:08 Order name: Chest For Pe Angio [facility] 09/07 07:51 Order name: US EDMS Administered Medications: 09/06 22:55 Drug: Xopenex (3) 1.25 mg {Note: Gibven via BIPAP neb by RT.} Route: Inhalation; 23:12 Drug: Lasix 40 mg Route: IVP; Site: right antecubital; 09/07 00:34 Follow up: Response: No adverse reaction 00:34 Drug: Rocephin 1 grams Route: IV; Rate: per protocol; Site: right antecubital; 00:56 Follow up: Response: No adverse reaction; IV Status: Completed infusion Disposition: 09/07/20 00:38 Hospitalization ordered by Brain Koenig for Inpatient Admission. Preliminary diagnosis is Chronic obstructive pulmonary disease with (acute) exacerbation. - Bed requested for Telemetry/MedSurg (Inpatient). - Status is Inpatient Admission. jl7 - Condition is Stable. - Problem is new. - Symptoms are unchanged. Addendum: 09/08/2020 13:44 Co-signature as Attending Physician, Brenden Burgess MD I agree with the assessment and t w4 plan of care. Signatures: Dispatcher [employer] [facility] joyEstee pang Leonarda Natarajan RN NOMI Kali Chiu PA PA [facility] Carleen Thompson, RN RN lp1 Lalo Felix RN RN jl7 Diaz Elias Brenden Burgess MD MD tw4 Sulema Beard RN RN ll1 Corrections: (The following items were deleted from the chart) 09/07 00:41 00:38 Hospitalization Ordered by Brain Koenig MD for Inpatient Admission. [facility] Preliminary diagnosis is Chronic obstructive pulmonary disease with (acute) exacerbation. Bed requested for Telemetry/MedSurg (Inpatient). Status is Inpatient Admission. Condition is Stable. Problem is new. Symptoms are unchanged. [facility] 08:20 00:41 09/07/2020 00:38 Hospitalization Ordered by Brain Koenig MD for Inpatient bd Admission. Preliminary diagnosis is Chronic obstructive pulmonary disease with (acute) exacerbation. Bed requested for [facility] ER HOLD. Status is Inpatient Admission. Condition is Stable. Problem is new. Symptoms are unchanged. 09:19 08:20 09/07/2020 00:38 Hospitalization Ordered by Brain Koenig MD for Inpatient jl7 Admission. Preliminary diagnosis is Chronic obstructive pulmonary disease with (acute) exacerbation. Bed requested for Telemetry/MedSurg (Inpatient). Status is Inpatient Admission. Condition is Stable. Problem is new. Symptoms are unchanged. bd
[2020-09-07] MEDS: ENOXAPARIN 80 MG/0.8 ML SQ SCH ×2 (01:08→13:08)
--- NOTE | 2020-09-07 01:10 | P.HP ---
Certification for Inpatient Patient admitted to: Inpatient With expected LOS: >2 Midnights Practitioner: I am a practitioner with admitting privileges, knowledge of patient current condition, hospital course, and medical plan of care. Services: Services provided to patient in accordance with Admission requirements found in Title 42 Section 412.3 of the Code of Federal Regulations Patient History Date of Service: 09/07/20 Reason for admission: Respiratory distress History of Present Illness: Patient is 55 years of age, a very heavy smoker 1/2 packs a day has been having progressive intermittent dyspnea the past 2 weeks Harjeet into the emergency room and was prescribed an albuterol inhaler prednisone and Levaquin and he continued to get worse developed lower extremity edema and appeared in the hospital he does feel better now on is no prior history of COPD or coronary artery disease denies any fever Allergies No Known Drug Allergies Allergy (Verified 03/04/19 13:37) Unknown Home Medications: Metformin ER [Glucophage ER*] 500 mg PO BID 10/20/15 hydroCHLOROthiazide [Hydrochlorothiazide*] 12.5 mg PO DAILY 11/06/15 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[employer] - Family History Father -: Lung disease, Cancer Notes: lung cancer Mother -: Cancer Notes: breast cancer - Social History Smoking Status: Current every day smoker Alcohol use: No CD- Drugs: No Caffeine use: Yes Review of Systems 10-point ROS is otherwise unremarkable General: Weakness Respiratory: Shortness of Breath Cardiovascular: Edema Physical Examination - Vital Signs Temperature: 97.4 F (4) Blood Pressure: 116/91 Pulse: 138 Respirations: 30 Pulse Ox (%): 96 - Physical Exam General: In no apparent distress, Moderate distress HEENT: Atraumatic Respiratory: Clear to auscultation bilaterally, Diminished Cardiovascular: Regular rate/rhythm, Normal S1 S2, Edema (2+) Gastrointestinal: Normal bowel sounds, Soft and benign Musculoskeletal: No clubbing, No swelling Integumentary: No rashes, No breakdown Neurological: Normal speech, Normal strength at 5/5 x4 extr - Studies Laboratory Data (last 24 hrs) 09/06/20 22:50: PT 13.2 H, INR 1.12 09/06/20 22:50: WBC 18.2 H D, Hgb 16.2, Hct 49.9 H, Plt Count 283 D 09/06/20 22:50: Sodium 137, Potassium 4.4, BUN 23 H, Creatinine 1.12, Glucose 344 H, Magnesium 2.3, Total Bilirubin 0.6, AST 29, ALT 62, Alkaline Phosphatase 154 H Assessment and Plan - Problems (Diagnosis) (1) Respiratory distress Current Visit: Yes Status: Acute Plan: Patient is 55 years of age, a very heavy smoker admitted with worsening dyspnea over the past 2 weeks probably has underlying COPD he albuterol inhaler did help him at home he was also prescribed prednisone and levofloxacin chest x-ray shows cardiomegaly some interstitial changes white-colored BNP elevated at pat ient will be admitted to prescribe diuretic bronchodilators steroids would anticoagulate CT angiogram Discharge Plan: Home Plan to discharge in: 48 Hours - Advance Directives Does patient have a Living Will: No Does patient have a Durable POA for Healthcare: No
[2020-09-07] MEDS ORDERED: METHYLPREDNISOLONE 40 MG INJ IV SCH (02:00)
[2020-09-07] MEDS ORDERED: METHYLPREDNISOLONE 40 MG INJ ONE (02:27)
[2020-09-07] MEDS ORDERED: ENOXAPARIN 80 MG/0.8 ML SQ ONE (02:28)
[2020-09-07] MEDS ORDERED: ALBUTEROL 2.5 MG/3 ML NEB SOL ONE ×2 (02:32→07:51)
[2020-09-07] MEDS ORDERED: IPRATROPIUM BROM 0.5MG/2.5ML ONE ×2 (02:33→07:51)
[2020-09-07] MEDS: IPRATROPIUM BROM 0.5MG/2.5ML NEB SCH ×2 (02:45→07:55)
[2020-09-07] MEDS: ALBUTEROL 2.5 MG/3 ML NEB SOL NEB SCH ×2 (02:45→07:55)
[2020-09-07] MEDS ORDERED: METOPROLOL TARTRATE 5 MG/5 ML INJ IV PRN (03:27)
[2020-09-07] MEDS ORDERED: METOPROLOL TARTRATE 5 MG/5 ML INJ IV ONE (03:53)
[2020-09-07 04:41] VITALS: BMI 30.9
[2020-09-07] MEDS ORDERED: ALPRAZOLAM 0.25 MG TABLET PO PRN (06:26)
[2020-09-07] MEDS ORDERED: D50W 25 GM/50 ML SYRINGE/VIAL IV PRN (06:26)
[2020-09-07] MEDS ORDERED: GLUCAGON 1 MG/VIAL IM PRN (06:26)
[2020-09-07 06:54] LABS: Absolute Lymphocytes (CBC) 1.6 K/uL (0.7-4.9); Basophils % 0.5 % (0-1.3); Hematocrit 47.8 % (39.6-49.0); Lymphocytes % 9.8 % (15.3-44.8)
[2020-09-07 07:15] LABS: Potassium 4.5 mmol/L (3.5-5.1)
--- NOTE | 2020-09-07 07:23 | EKG ---
Test Date: 2020-09-06 Test Time: 22:27:40 Wire Mesh Gate Assembler: MEASUREMENT RESULTS: Intervals: Rate: 139 NM: 200 QRSD: 92 QT: 268 QTc: 407 Dante: P: 57 NM: 200 QRS: -62 T: 66 INTERPRETIVE STATEMENTS: Sinus tachycardia Left anterior fascicular block Septal infarct, age undetermined Abnormal ECG Compared to ECG 08/28/2020 14:31:31 Left anterior fascicular block now present Right-axis deviation no longer present Myocardial infarct finding still present Electronically Signed On 09-07-20 07:22:21 STILL OPERATOR BRANDY by Yury Duke
[2020-09-07] MEDS ORDERED: INSULIN -REGULAR HUMAN 50 UNIT/0.5 ML ML SQ SCH (07:30)
[2020-09-07 07:44] LABS: Thyroid Stimulating Hormone 1.2 uIU/mL (0.360-3.740)
--- NOTE | 2020-09-07 07:45 | RAD REPORT ---
EXAM DESCRIPTION: Valdezt Single View09/06/2020 10:41 pm CLINICAL HISTORY: Shortness of breath COMPARISON: July 2020 FINDINGS: Small to moderate right and small left pleural effusions without significant change. Bibasilar atelectasis The upper lobe vessels are prominent indicative of pulmonary venous hypertension. The heart remains e nlarged
--- NOTE | 2020-09-07 07:51 | RAD REPORT ---
EXAM DESCRIPTION: USExtrem Venous W Compress Bil09/07/2020 7:22 am CLINICAL HISTORY: Bilateral leg swelling COMPARISON: none FINDINGS: The common femoral, superficial femoral, popliteal and posterior tibial veins bilaterally are compressible and demonstrate augmentation. Doppler demonstrates good flow. IMPRESSION: No evidence of deep venous thrombosis involving either lower extremity.
[2020-09-07] MEDS ORDERED: PNEUMOCOCCAL VACCINE 0.5 ML IMVAC ONE (08:00)
[2020-09-07] MEDS ORDERED: INFLUENZA VACCINE (for 3y+) 0.5 ML DOSE IMVAC ONE (08:00)
[2020-09-07] MEDS: predniSONE 10 MG TAB PO SCH ×2 (08:00→17:02)
[2020-09-07] MEDS ORDERED: INSULIN -REGULAR HUMAN 50 UNIT/0.5 ML ML ONE (08:44)
[2020-09-07] MEDS ORDERED: predniSONE 10 MG TAB ONE (08:48)
[2020-09-07] MEDS ORDERED: FUROSEMIDE 20 MG/ 2ML VIAL IV SCH (09:00)
[2020-09-07] MEDS ORDERED: ASPIRIN EC 81 MG TAB PO SCH (09:00)
[2020-09-07] MEDS ORDERED: ALPRAZOLAM 0.25 MG TABLET ONE (09:26)
[2020-09-07] MEDS ORDERED: FUROSEMIDE 20 MG/ 2ML VIAL IV ONE (10:53)
[2020-09-07] MEDS ORDERED: IPRATROPIUM BROM 0.5MG/2.5ML NEB PRN (10:56)
[2020-09-07] MEDS ORDERED: ALBUTEROL 2.5 MG/3 ML NEB SOL NEB PRN (10:56)
--- NOTE | 2020-09-07 11:04 | P.PN ---
Subjective Date of Service: 09/07/20 Primary Care Provider: none Chief Complaint: Respiratory distress Subjective: Other (Patient still with some shortness of breath but improved. Edema to the lower extremity noted) Physical Examination - Vital Signs Temperature: 97.9 F Blood Pressure: 106/77 Pulse: 114 Respirations: 20 Pulse Ox (%): 97 - Physical Exam General: Alert, In no apparent distress, Oriented x3, Cooperative HEENT: Atraumatic Neck: Supple Respiratory: Diminished (Diminished to the bases bilateral), Crackles/rales (Bilateral) Cardiovascular: Abnormal pulses (Sinus tachycardia) Gastrointestinal: Normal bowel sounds, No tenderness, No masses, No rebound, No guarding Musculoskeletal: No erythema, No tenderness, No warmth Integumentary: Tenderness/swelling (1 to 2+ pitting edema to the lower extremities bilateral) Neurological: Normal speech, Normal strength at 5/5 x4 extr, Normal tone, Normal affect - Studies Laboratory Data (last 24 hrs) 09/06/20 22:50: PT 13.2 H, INR 1.12 09/06/20 22:50: WBC 18.2 H D, Hgb 16.2, Hct 49.9 H, Plt Count 283 D 09/06/20 22:50: Sodium 137, Potassium 4.4, BUN 23 H, Creatinine 1.12, Glucose 344 H, Magnesium 2.3, Total Bilirubin 0.6, AST 29, ALT 62, Alkaline Phosphatase 154 H Medications List Reviewed: Yes Assessment & Plan Discharge Plan: Home Plan to discharge in: 48 Hours Physician Review Additional Text: Impression: Dyspnea secondary to acute on chronic respiratory failure related to acute on chronic systolic CHF and COPD exacerbation Hypertension Tachycardia likely medication related Diabetes mellitus type 2 uncontrolled with hyperglycemia Hyperlipidemia, mixed Tobacco abuse Plan: Dyspnea secondary to acute on chronic respiratory failure related to acute on chronic systolic CHF and COPD exacerbation: Patient likely with severe systolic CHF. Echocardiogram performed. Await results. Preliminary shows less than 20% EF. CT scan to rule out pulmonary embolism obtained. Await results. If negative will decrease Lovenox to DVT prophylaxis dose. Case discussed with cardiology. Await recommendations. Will increase Lasix to IV 40 mg twice daily. Will give Lasix 20 mg IV now. Continue 1500 cc per day fluid restrictio n and low-salt diet. Will teach on CHF. If with significant systolic dysfunction patient may benefit starting Entresto. Will also treat COPD. Change IV steroids to oral. Provide COPD medication. Will change albuterol to as needed due to his tachycardia. Patient may require further cardiac evaluation and intervention. Await recommendations. Anticipate improvement over the next 24-48 hr. Hypertension: Will start metoprolol low dose. Tachycardia likely medication related: Will start metoprolol low dose. This appears improved with diuresis. Will change albuterol to as needed. Will monitor this closely. Await recommendations by Cardiology. Diabetes mellitus type 2 uncontrolled with hyperglycemia: A1c elevated at 9.7. Will start basal insulin. Will provides insulin sliding scale. Will monitor and adjust appropriately. Hyperlipidemia, mixed: Will start Lipitor and fish oil. Tobacco abuse: Will provide nicotine patch. Time Spent Managing Pts Care (In Minutes): 55
[2020-09-07] MEDS ORDERED: INSULIN GLARGINE 100 UNITS/ML SQ SCH (11:05)
[2020-09-07 11:12] VITALS: O2SAT 96
[2020-09-07] MEDS: INSULIN -REGULAR HUMAN 50 UNIT/0.5 ML ML SQ SCH ×2 (13:06→17:00)
[2020-09-07] MEDS ORDERED: FUROSEMIDE 40 MG/4 ML VIAL IV SCH (17:00)
--- NOTE | 2020-09-07 17:31 | P.DS ---
Admission Date: 09/07/20 Discharge Date: 09/07/20 Primary Care Provider: none Disposition: ROUTINE DISCHARGE Discharge Condition: GOOD Reason for Admission: Respiratory distress Consultations: Cardiology-Dr. Gómez Procedures: COVID: negative ECHO: 15 % EF Medical Problem List: Dyspnea secondary to acute on chronic respiratory failure related to acute on chronic systolic CHF and COPD exacerbation Hypertension Tachycardia likely medication related Diabetes mellitus type 2 uncontrolled with hyperglycemia Hyperlipidemia, mixed Tobacco abuse Brief History of Present Illness: 55-year-old male presented to the emergency room with increasing shortness of breath. Patient found to have acute respiratory failure likely related to acute on chronic systolic CHF. Patient admitted for further evaluation and treatment. Patient with significant edema to the lower extremity. Hospital Course: Patient presented with dyspnea secondary to acute on chronic respiratory failure related to acute on chronic systolic CHF and possible underlying COPD exacerbation. The patient was admitted for further evaluation and treatment. Patient found to have significant edema to the lower extremity. Echocardiogram performed showed EF of 20%. Cardiology was consulted for further recommendation. Cardiology recommended heart catheterization for further evaluation. Cardiology agreed with diuresis. Patient desired to go home. It was recommended that the patient stay for further evaluation with heart catheterization. The patient continued to persist on going home. This was discussed in detail with cardiology. Since the patient did not have any elevation in troponin and his significant shortness of breath was improved, the patient was discharged home with specific instructions. At discharge patient will continue with a 1500 cc per day fluid restriction and low-salt diet. He is to monitor his weight daily. If his weight increases by more than 5 lb he is to contact cardiology for further recommendation. At discharge patient will continue with Lasix 80 mg 1 pill twice daily. Further adjustment in his medication can be done by cardiology. The patient will follow up with cardiology on to prepare for heart catheterization as an outpatient to further evaluate his condition. Education on CHF and CAD provided. Patient understands the importance of follow up with cardiology. This was addressed in detail. If symptoms worsen he is to return back to the hospital for further evaluation. Patient with underlying hypertension and tachycardia. Patient was started on metoprolol low dose. At discharge patient will continue with metoprolol 12.5 mg 1 pill twice daily. Recommend to maintain blood pressure less than 130/80. This can be further monitored and adjusted by Cardiology. Patient with diabetes mellitus type 2 uncontrolled with hyperglycemia. Patient without medication. Hemoglobin A1c 9.7. Patient was started on basal insulin. At discharge recommend to monitor his blood sugars at least twice daily. Recommend to maintain blood sugars less than 140 fasting and less than 200 after meals. At discharge patient will continue with Lantus solo star 10 units at bedtime. If his blood sugars remain above 200. He may increase Lantus by 2-3 units for better control. Recommend to establish care with a local PCP to further monitor and adjust medication. A list of PCPs in the area was provided. Patient with hyperlipidemia. At discharge patient will continue with Lipitor 40 mg daily and fish oil 1000 mg 1 pill twice daily. Further adjustment can be done by cardiology in the future. Patient with tobacco abuse. At discharge patient will be given nicotine patch to help with tobacco cessation. Patient likely has underlying COPD. At discharge patient will continue with S ymbicort 2 puffs twice daily. Recommend follow up with pulmonology as an outpatient to further address and monitor. Vital Signs/Physical Exam: Temp Pulse Resp BP Pulse Ox 97.5 F 134 H 20 104/75 93 09/07/20 12:00 09/07/20 17:02 09/07/20 13:04 09/07/20 17:02 09/07/20 12:00 General: Alert, In no apparent distress, Oriented x3, Cooperative HEENT: Atraumatic Neck: Supple Respiratory: Clear to auscultation bilaterally, Normal air movement Cardiovascular: Abnormal pulses (Sinus tachycardia) Gastrointestinal: Normal bowel sounds, No tenderness, No masses, No rebound, No guarding Integumentary: No erythema, No warmth, No cyanosis, Tenderness/swelling (Edema to the lower extremities improved but around 1 to 2+) Neurological: Normal speech, Normal strength at 5/5 x4 extr, Normal tone, Normal affect Laboratory Data at Discharge: WBC 16.1 K/uL (4.3-10.9) H 09/07/20 06:34 Hgb 15.4 g/dL (13.6-17.9) 09/07/20 06:34 Hct 47.8 % (39.6-49.0) 09/07/20 06:34 Plt Count 245 K/uL (152-406) 09/07/20 06:34 PT 13.2 SECONDS (9.5-12.5) H 09/06/20 22:50 INR 1.12 09/06/20 22:50 Sodium 136 mmol/L (136-145) 09/07/20 06:34 Potassium 4.5 mmol/L (3.5-5.1) 09/07/20 06:34 BUN 25 mg/dL (7-18) H 09/07/20 06:34 Creatinine 0.97 mg/dL (0.55-1.3) 09/07/20 06:34 Glucose 375 mg/dL (74-106) H 09/07/20 06:34 Magnesium 2.3 mg/dL (1.8-2.4) 09/06/20 22:50 Total Bilirubin 0.6 mg/dL (0.2-1.0) 09/06/20 22:50 AST 29 U/L (15-37) 09/06/20 22:50 ALT 62 U/L (12-78) 09/06/20 22:50 Alkaline Phosphatase 154 U/L (45-117) H 09/06/20 22:50 Troponin I < 0.02 ng/mL (0.0-0.045) 09/07/20 06:34 Triglycerides 308 mg/dL (<150) H 09/07/20 06:34 Cholesterol 202 mg/dL (<200) H 09/07/20 06:34 HDL Cholesterol 25 mg/dL (40-60) L 09/07/20 06:34 Cholesterol/HDL Ratio 8.08 09/07/20 06:34 Home Medications: Aspirin [Aspirin EC 81 MG] 81 mg PO DAILY #90 tablet. 09/07/20 Atorvastatin Calcium [Lipitor] 40 mg PO DAILY #30 tablet 09/07/20 Budesonide/Formoterol Fumarate [Symbicort 160-4.5 Mcg Inhaler] 2 puff IH BID #1 hfa.aer.ad 09/07/20 Docosahexanoic AC/Epa [Fish Oil 1,000 MG CAP] 1 cap PO BID #60 cap 09/07/20 Folic Acid 1 mg PO DAILY #90 tablet 09/07/20 Furosemide [Lasix] 80 mg PO BID #60 tablet 09/07/20 Insulin Glargine,Hum.rec.anlog [Lantus Solostar] 10 unit SQ BEDTIME #1 packet 09/07/20 Metoprolol Tartrate [Lopressor*] 12.5 mg PO BID 6AM 6PM #60 tab 09/07/20 Nicotine [Nicoderm*] 21 mg TD DAILY #30 patch.td24 09/07/20 New Medications: Aspirin [Aspirin EC 81 MG] 81 mg PO DAILY #90 tablet. Docosahexanoic AC/Epa [Fish Oil 1,000 MG CAP] 1 cap PO BID #60 cap Folic Acid 1 mg PO DAILY #90 tablet Insulin Glargine,Hum.rec.anlog [Lantus Solostar] 10 unit SQ BEDTIME #1 packet Furosemide [Lasix] 80 mg PO BID #60 tablet Atorvastatin Calcium [Lipitor] 40 mg PO DAILY #30 tablet Metoprolol Tartrate [Lopressor*] 12.5 mg PO BID 6AM 6PM #60 tab Nicotine [Nicoderm*] 21 mg TD DAILY #30 patch.td24 Budesonide/Formoterol Fumarate [Symbicort 160-4.5 Mcg Inhaler] 2 puff IH BID #1 hfa.aer.ad Patient Discharge Instructions: 1. Recommend follow up with PCP in 1 week to follow up this hospitalization. 2. Patient presented with dyspnea secondary to acute on chronic respiratory failure related to acute on chronic systolic CHF and possible underlying COPD exacerbation. The patient was admitted for further evaluation and treatment. Patient found to have significant edema to the lower extremity. Echocardiogram performed showed EF of 20%. Cardiology was consulted for further recommendation. Cardiology recommended heart catheterization for further evaluation. Cardiology agreed with diuresis. Patient desired to go home. It was recommended that the patient stay for further evaluation with heart catheterization. The patient continued to persist on going home. This was discussed in detail with cardiology. Since the patient did not have any elevation in troponin and his significant shortness of breath was improved, the patient was discharged home with specific instructions. At discharge patient will continue with a 1500 cc per day fluid restriction and low-salt diet. He is to monitor his weight daily. If his weight increases by more than 5 lb he is to contact cardiology for further recommendation. At discharge patient will continue with Lasix 80 mg 1 pill twice daily. Further adjustment in his medication can be done by cardiology. The patient will follow up with cardiology on to prepare for heart catheterization as an outpatient to further evaluate his condition. Education on CHF and CAD provided. Patient understands the importance of follow up with cardiology. This was addressed in detail. If symptoms worsen he is to return back to the hospital for further evaluation. 3. Patient with underlying hypertension and tachycardia. Patient was started on metoprolol low dose. At discharge patient will continue with metoprolol 12.5 mg 1 pill twice daily. Recommend to maintain blood pressure less than 130/80. This can be further monitored and adjusted by Cardiology. 4. Patient with diabetes mellitus type 2 uncontrolled with hyperglycemia. Patient without medication. Hemoglobin A1c 9.7. Patient was started on basal insulin. At discharge recommend to monitor his blood sugars at least twice daily. Recommend to maintain blood sugars less than 140 fasting and less than 200 after meals. At discharge patient will continue with Lantus solo star 10 units at bedtime. If his blood sugars remain above 200. He may increase Lantus by 2-3 units for better control. Recommend to establish care with a local PCP to further monitor and adjust medication. A list of PCPs in the area was provided. 5. Patient with hyperlipidemia. At discharge patient will continue with Lipitor 40 mg daily and fish oil 1000 mg 1 pill twice daily. Further adjustment can be done by cardiology in the future. 6. Patient with tobacco abuse. At discharge patient will be given nicotine patch to help with tobacco cessation. 7. Patient has underlying COPD. At discharge patient will continue with Symbicort 2 puffs twice daily. Recommend follow up with pulmonology as an outpatient to further address and monitor. Diet: ADA (2000 ADA diet. 1500 cc per day fluid restriction) Activity: Ad sathish Followup: NONE,NONE [Primary Care Provider] - Time spent managing pt's care (in minutes): 55
[2020-09-07] MEDS: METOPROLOL TAR 25 MG TAB PO SCH ×2 (18:00→19:44)
[2020-09-07 18:17] VITALS: TEMP 97.6
[2020-09-07 19:45] VITALS: BP 115/75
[2020-09-07] MEDS ORDERED: DOCOSAHEXANOIC AC/EPA 1000 MG PO SCH (21:00)
[2020-09-07] MEDS ORDERED: DULERA 100/5 (MOMETASONE/FORMOTEROL) INHALER IH SCH (21:00)
[2020-09-07] MEDS ORDERED: ATORVASTATIN 40 MG TAB PO SCH (21:00)
--- NOTE | 2020-09-08 08:20 | ECHO ---
HEIGHT: 5 ft 4 in WEIGHT: 180 lb 0 oz DATE OF STUDY: 09/07/[address]: Brain Koenig MD 2-DIMENSIONAL: YES M.MODE: YES DOPPLER: YES COLOR FLOW: YES TDS: PORTABLE: DEFINITY: BUBBLE STUDY: DIAGNOSIS: RESPIRATORY DISTRESS CARDIAC HISTORY: CATHERIZATION: SURGERY: PROSTHETIC VALVE: PACEMAKER: MEASUREMENTS (cm) DIASTOLIC (NORMALS) SYSTOLIC (NORMALS) IVSd 1.3 (0.6-1.2) LA Diam 5.2 (1.9-4.0) LVEF 12% LVIDd 5.8 (3.5-5.7) LVIDs 5.5 (2.0-3.5) %FS 5% LVPWd 1.2 (0.6-1.2) Ao Diam 3.0 (2.0-3.7) 2 DIMENSIONAL ASSESSMENT: RIGHT ATRIUM: ENLARGED LEFT ATRIUM: ENLARGED RIGHT VENTRICLE: NORMAL LEFT VENTRICLE: SEVERELY DEPRESSED TRICUSPID VALVE: MILD TRICUSPID REGURGITATION MITRAL VALVE: MILD MITRAL REGURGITATION PULMONIC VALVE: NORMAL AORTIC VALVE: NORMAL PERICARDIAL EFFUSION: NONE AORTIC ROOT: NORMAL LEFT VENTRICULAR WALL MOTION: SEVERELY HYPOKINESIS DOPPLER/COLOR FLOW: SEE BELOW COMMENTS: SEVERELY DEPRESSED LEFT VENTRICULAR EJECTION FRACTION 15-20%. ANTERIOR, MARGARITA SEPTAL AND APICAL AKINESIS. BI-ATRIAL ENLARGED. ELEVATED RIGHT VENTRICULAR SYSTOLIC PRESSURE AT 40-45 mmHg. MILD MITRAL AND TRICUSPID REGURGITATION. TECHNOLOGIST: DANA MCCORD
[2020-09-08] MEDS ORDERED: FOLIC ACID 1 MG TABLET PO SCH (09:00)
[2020-09-08] MEDS ORDERED: NICOTINE 21 MG/PAT TD SCH (09:00)
--- NOTE | 2020-09-09 12:51 | CON ---
Date of Consultation: 09/07/2020 Reason For Consultation: Heart failure. History Of Present Illness: A 55-year-old male, heavy smoker, presented with progressive shortness o f breath and some chest discomfort. He was seen in the emergency room recently, given some antibioti cs without improvement. He had significant edema and noted to have COPD. He was diuresed and felt b destini. Evaluated him by bedside and wanted to go home. Past Medical History: Hypertension, diabetes, COPD. Medications: Refer to reconciliation sheet for detailed list. Allergies: NO KNOWN DRUG ALLERGIES. Family History: Father with lung cancers. Social History: He is a smoker. Does not drink or use any drugs. Review of Systems: All systems reviewed and they were negative except mentioned in the HPI. Physical Examination: Vital Signs: Reviewed and stable. Temperature is 97.4, pulse is 110, breathing at 18, blood pressur e is 116/91, saturating 96% no distress. Head and Neck: Pupils are equal, reactive to light. Intact eye movements. No JVD. No cervical lym phadenopathy. Neck: Supple. Thyroid is not enlarged. Lungs: Clear to auscultation bilaterally. No rhonchi, rales, or crackles. No accessory muscle use. Heart: Regular rate and rhythm. No extra sounds. Abdomen: Soft, nontender. Bowel sounds positive. No organomegaly. No masses or hernia. No rigidi ty or rebound. Extremities: No edema, clubbing, cyanosis. Intact pulses. Skin: No rashes. Neurologic: Alert, awake, oriented x3. No acute focal deficits appreciated. Investigations: Labs were reviewed. Echo showed severely depressed LVEF. Assessment And Recommendation: Acute systolic congestive heart failure with severely depressed EF on echo with wall motion abnormality. Recommend coronary angiogram. The patient refused to stay but a greed to do it as an outpatient. The patient is discharged. We will plan for coronary angiogram as soon as possible. Thank you for this consultation. /QUIRINO Voice ID: [id number] Report ID: [id number]
== END 2020-09-07 19:55 | disposition home or self-care (01) | DRG 291 ==
LOC: ER 21:50 → ERHOLD 09-07 01:24 → 2ND 09-07 08:57
PROVIDERS: ADMIT Internal Medicine Sleep Medicine; ATTEND Family Medicine
DX: I11.0 Hypertensive heart disease with heart failure (principal); J96.20 Acute and chronic respiratory failure, unspecified whether with hypoxia or hypercapnia; J44.1 Chronic obstructive pulmonary disease with (acute) exacerbation; I50.23 Acute on chronic systolic (congestive) heart failure; E78.2 Mixed hyperlipidemia; E11.65 Type 2 diabetes mellitus with hyperglycemia; F17.210 Nicotine dependence, cigarettes, uncomplicated; R00.0 Tachycardia, unspecified; T50.905A Adverse effect of unspecified drugs, medicaments and biological substances, initial encounter; Z79.899 Other long term (current) drug therapy; Z60.2 Problems related to living alone; Z79.82 Long term (current) use of aspirin; Z79.4 Long term (current) use of insulin; Z20.828 Contact with and (suspected) exposure to other viral communicable diseases
CPT/HCPCS: 36415; 71045; 71275; 80048; 80061; 80076; 82947; 83036; 83605; 83735; 83880; 84145; 84439; 84443; 84484; 85025; 85610; 87040; 93005; 93306; 93970; 94640; 94660; 94760; 96365; 96375; 99285; J0696; J1815; J1940; J2920; J7512; J7606; Q9967; U0003

== ENCOUNTER 2020-09-10 11:23 | Day surgery (SDC) | payer BC ==
[2020-09-09 13:57] LABS: Protime INR 1.11
[2020-09-10] MEDS ORDERED: NA CHLORIDE 0.9% 500 ML ONE (12:27)
[2020-09-10] MEDS ORDERED: METOPROLOL TARTRATE 5 MG/5 ML INJ IV ONE ×2 (13:49→14:50)
[2020-09-10] MEDS ORDERED: ONDANSETRON 4 MG/2 ML VIAL ONE (14:18)
[2020-09-10] MEDS ORDERED: HEPA 1000U/500MLS 2,000 UNIT/1,000 ML BAG IV ONE (14:40)
[2020-09-10] MEDS ORDERED: FENTANYL CITR 100 MCG/2 ML ONE (14:49)
[2020-09-10] MEDS ORDERED: ATROPINE SULF 1 MG/10 ML SYR IV ONE (14:49)
[2020-09-10] MEDS ORDERED: HEPARIN 5000 UNIT/ML 1 ML VIAL ONE (14:49)
[2020-09-10] MEDS ORDERED: MIDAZOLAM HCL 2 MG/2 ML INJ ONE (14:49)
[2020-09-10] MEDS ORDERED: VERAPAMIL HCL 10 MG/4 ML VIAL IV ONE (14:49)
[2020-09-10] MEDS ORDERED: AMIODARONE HCL 150 MG/3 ML INJ IV ONE (14:50)
[2020-09-10] MEDS ORDERED: D5W 0 ML IV ONE (14:51)
[2020-09-10] MEDS ORDERED: ADENOSINE 6 MG/ 2ML VIAL IV ONE (14:56)
[2020-09-10] MEDS ORDERED: FUROSEMIDE 20 MG/ 2ML VIAL ONE (15:24)
[2020-09-10 15:55] VITALS: TEMP 96.3
--- NOTE | 2020-09-10 15:58 | OP ---
Date of Procedure: 09/10/2020 Surgeon: MARKELL BUTTERFIELD Procedures Performed: 1.Selective coronary angiogram. 2.Left heart catheterization. Access: Right radial artery 6-Upper Sorbian with a TR band. Indications: Severe systolic heart failure. Description Of Procedure: After risks, benefits and alternatives were explained, the patient agreed to the procedure and signed informed consent. The patient was brought into the cardiac catheterizati on laboratory, prepped and draped in usual sterile fashion. We accessed right radial artery using a pediatric micropuncture kit and placed a 6-Upper Sorbian slender sheath and we took a 5-Upper Sorbian [place] cathete r into the aortic root and over a J-wire, engaged left main coronary artery and the right coronary ar fara and took standard views, and then removed the catheter and the wire and the sheath, and placed T R band. Findings: 1.Left main: No significant disease. 2.LAD: Mild disease 10% to 20% throughout. 3.Left circumflex has a proximal 20%. 4.RCA has multiple locations with 10% to 20%. No significant coronary artery disease. 5.Across the aortic valve with a wire and then the catheter advanced to the LV, recorded LVEDP at 49 mmHg and then upon pullback, there was no difference in gradient. Impression: 1.Very mild coronary artery disease that is not significant. This is a nonischemic cardiomyopathy. 2.Severely elevated LVEDP. Recommendation: Again, 40 mg Lasix IV now and we will transfer the patient to higher level of care f acility for advanced heart failure management. SR/MODL Voice ID: [id number] Report ID: [id number]
[2020-09-10 17:04] VITALS: O2SAT 97
[2020-09-10 17:07] VITALS: BP 105/82
--- NOTE | 2020-09-13 07:50 | EKG ---
Test Date: 2020-09-10 Test Time: 13:28:19 Veterinary Virologist: JAGDISH MEASUREMENT RESULTS: Intervals: Rate: 150 VA: QRSD: 98 QT: 334 QTc: 527 [place]: P: VA: QRS: 113 T: 58 INTERPRETIVE STATEMENTS: Supraventricular tachycardia Right axis deviation Pulmonary disease pattern Abnormal ECG Compared to ECG 09/10/2020 13:27:50 Fusion complex(es) no longer present Electronically Signed On 09-13-20 07:41:59 CHECKERER HAND by Yury Duke
--- NOTE | 2020-09-13 07:50 | EKG ---
Test Date: 2020-09-10 Test Time: 13:27:50 Embalmer Assistant: JAGDISH MEASUREMENT RESULTS: Intervals: Rate: 152 [place]: QRSD: 98 QT: 338 QTc: 537 [place]: P: UT: QRS: 119 T: 52 INTERPRETIVE STATEMENTS: Supraventricular tachycardia with fusion complexes Right axis deviation Pulmonary disease pattern Abnormal ECG Compared to ECG 09/06/2020 22:27:40 Fusion complex(es) now present Right-axis deviation now present Sinus tachycardia no longer present Left anterior fascicular block no longer present Myocardial infarct finding no longer present Electronically Signed On 09-13-20 07:42:00 CHEMICAL PLANT OPERATOR by Yury Duke
== END 2020-09-10 17:00 | disposition short-term general hospital (02) ==
LOC: CCL 11:23
PROVIDERS: ATTEND Internal Medicine
DX: I42.9 Cardiomyopathy, unspecified (principal); I11.0 Hypertensive heart disease with heart failure; I50.20 Unspecified systolic (congestive) heart failure; F17.200 Nicotine dependence, unspecified, uncomplicated; J44.9 Chronic obstructive pulmonary disease, unspecified; E11.9 Type 2 diabetes mellitus without complications; I25.10 Atherosclerotic heart disease of native coronary artery without angina pectoris
CPT/HCPCS: 36415; 85610; 85730; 93005; 93458; C1893; J0153; J0282; J1644; J1940; J2250; J2405; J3010; J7040